=== PATIENT | female | born 1975 | race Caucasian/White ===

== ENCOUNTER 2019-08-05 19:50 | Emergency (ER) | payer MEDICAID, SELFPAY ==
[2019-08-05 19:51] VITALS: BP 164/97; PULSE 98; RESP 15; TEMP 36.7; O2SAT 95; BMI 55.0
--- NOTE | 2019-08-05 20:34 | ED.DCSUM_ITS ---
History of Present Illness Chief Complaint: Other, Pain/Inj Informant: Patient Onset: Yesterday Context: Gradual Onset Timing: Continuous Current Severity: Moderate Maximum Severity: Moderate Narrative: Patient is a 43-year-old female presented with facial swelling. Patient states she had a cyst removed from her head by Dr. Medina at [facility] on Tuesday, 2 days ago. Since then she has had slowly progressing swelling of her forehead, eyes and face. She was started on Keflex and has been taking it. Patient states she is tolerated in the past. She was discharged home and instructed to take Tylenol and Motrin as needed for her pain. She states she is also had significant pain at her surgical site. Patient was seen at [facility] twice for pain associated with it. The first time she was started on Toradol after getting an IM shot of morphine. The second time patient was just discharged home. Patient is more concerned about the swelling right now but states she is having a lot of pain. She denies any new foods. She has any swelling in her throat. She denies any difficulty breathing or shortness of breath. She denies any other complaints at this time. Past Medical History - Allergies and Home Meds Allergies/Adverse Reactions: Allergies lisinopril Allergy (Verified 08/05/19 19:56) Shortness of breath losartan Allergy (Verified 08/05/19 19:56) Shortness of breath Primary Care Physician: Wu Sanchez DO [Primary Care Provider] - Smoking Status: Never smoker Review of Systems All systems negative except as indicated ENT: Reports: - - Facial swelling Skin: Reports: - - Surgical site on scalp Physical Exam Vital Signs/Narrative: Vital Signs Temp Pulse Resp BP Pulse Ox 08/05/19 19:51 98.1 F 98 15 164/97 H 95 Inital Vital Signs reviewed: Yes General: Well nourished, Well developed, Obese, No Acute Distress Head: Normocephalic Eyes: Perrl, EOMI, - - Bilateral edema of the eyelids, right greater than left and mild periorbital edema ENT: Moist mucous membranes, No rhinorrhea, - - Mild edema of the right cheek and compared to the left, no edema of the buccal surfaces or the oropharynx Neck: Supple, Nontender, - - No stridor. Negative for: No JVD Cardiovascular: Regular rate, Regular rhythm, No murmurs Respiratory: No distress, CTA bilaterally, Chest nontender. Negative for: Wheezing Abdomen: Soft, Nontender, Nondistended, Normal bowel sounds Back: Nontender, Normal Inspection Extremities: Nontender, No edema Skin: Normal color, No rash, - - Surgical site over left upper scalp extending from the hairline back about 5 cm, mild tenderness to palpation but no significant erythema or warmth and no drainage Neurological: Alert, Oriented x3, Cranial nerves II-XII grossly intact, Normal Strength, Normal Sensation Psychological: Normal affect, Normal Mood Diagnostic/Tx/Re-eval - Medical Decision Making Patient is evaluated for swelling of her face. She had a large lipoma removed from her scalp on Tuesday, 2 days ago. She does not have any signs of airway swelling or other signs of an allergic reaction. She is given 1 dose of prednisone. Discussed the case with Dr. Medina, who surgeon who suspect this is dependent edema from the surgery. He states that the lipoma was quite extensive. He is comfortable stopping the patient's antibiotics just in case. He does not think she requires longer course of steroids however. I agree with this. He is agreeable with me writing a short course of Brook for her surgical pain. Patient is counseled heavily that she needs to follow-up with Dr. Medina and to call tomorrow to arrange follow-up. She verbalizes agreement understand with this. She does request a dose of Diflucan stating that she started having symptoms of a yeast infection when she started the Keflex. This is given to her in the emergency room. An [facility] report is checked which confirms that patient has not had any recent opioid prescriptions. Patient is counseled on signs and symptoms requiring return to the emergency room. Patient verbalizes agreement and understand this plan. Patient discharged home in stable and improved condition. ED Disposition - Plan for ED Patient: Disposition: Home or Assisted Living Diagnosis: Dependent edema, Postoperative pain Prescriptions: Hydrocodone Bitart/Apap 5-325 [Brook 5MG-325MG] 1 tab PO Q6H PRN PRN 3 Days #6 tab PRN Reason: Pain Prescription Printed Referrals: Wu Sanchez DO [Primary Care Provider] - Additional Instructions: Follow-up with Dr. Medina. Call the office tomorrow to schedule appointment. Continue to alternate Tylenol and Motrin for pain. He may take the Brook prescribed today for severe pain. Stop taking the antibiotics. You are given 1 dose of steroids today. More than likely this is not an allergic reaction but swelling from your recent surgery. Return to the emergency room if you develop any worsening symptoms or difficulty breathing. You were given a one-time dose of fluconazole for yeast infection in the emergency room as well.
[2019-08-05] MEDS: FLUCONAZOLE 150 MG TABLET PO (21:41)
[2019-08-05] MEDS: predniSONE 20 MG Tablet 60 MG PO (21:48)
[2019-08-05 21:49] VITALS: BP 145/71; PULSE 85; RESP 17; O2SAT 98
--- OUTSIDE RECORDS SUMMARY | 2019-08-08 04:06 | XMS RPT_ITS | CCD ---
:1975 External Reference #:[id number] Demographics Preferred Language Unknown Marital Status Unknown Quaker Affiliation Unknown Race Unknown Ethnic Group Unknown Author Organization [facility] Care Team Providers Name Role Phone PULLUM, (GINNER HELPER) Unavailable Unavailable Taylor, E. Unavailable Unavailable TRISTEN EDWARDS Admitting Unavailable TRISTEN EDWARDS Attending Unavailable TRISTEN EDWARDS Primary Care Unavailable MD RIYA Consulting Unavailable PROVIDER Consulting Unavailable PROVIDER Consulting Unavailable TRISTEN EDWARDS Admitting Unavailable TRISTEN EDWARDS Attending Unavailable TRISTEN EDWARDS Primary Care Unavailable MD RIYA Consulting Unavailable PROVIDER Consulting Unavailable PROVIDER Consulting Unavailable BLAINE Admitting Unavailable BLAINE Attending Unavailable BLAINE Primary Care Unavailable TRISTEN EDWARDS Consulting Unavailable PROVIDER Consulting Unavailable PROVIDER Consulting Unavailable FAUST, C Admitting Unavailable FAUST, C Attending Unavailable FAUST, C Primary Care Unavailable TRISTEN EDWARDS Consulting Unavailable PROVIDER Consulting Unavailable PROVIDER Consulting Unavailable LEX, E Admitting Unavailable LEX, E Attending Unavailable TRISTEN EDWARDS Referring Unavailable LEX, E Primary Care Unavailable TRISTEN EDWARDS Consulting Unavailable PROVIDER Consulting Unavailable PROVIDER Consulting Unavailable LORENZ Admitting Unavailable LORENZ Attending Unavailable LORENZ Primary Care Unavailable TRISTEN EDWARDS Consulting Unavailable PROVIDER Consulting Unavailable PROVIDER Consulting Unavailable LORENZ Admitting Unavailable LORENZ Attending Unavailable LORENZ Primary Care Unavailable TRISTEN EDWARDS Consulting Unavailable PROVIDER Consulting Unavailable PROVIDER Consulting Unavailable DIDUR, DO Admitting Unavailable DIDUR, DO Attending Unavailable TRISTEN EDWARDS Referring Unavailable DIDUR, DO Primary Care Unavailable TRISTEN EDWARDS Consulting Unavailable PROVIDER Consulting Unavailable PROVIDER Consulting Unavailable HABERBERGER, M Admitting Unavailable HABERBERGER, M Attending Unavailable TRISTEN EDWARDS Referring Unavailable HABERBERGER, M Primary Care Unavailable TRISTEN EDWARDS Consulting Unavailable PROVIDER Consulting Unavailable PROVIDER Consulting Unavailable Allergies Reported Allergen Reaction(s) Severity Date of Onset Location Lisinopril Moderate (Severity [facility]) [facility] Repository Losartan Moderate (Severity [facility]) ([facility] Repository Problems Active Problems Category Problem Name Status Date Location Asthma Unspecified asthma, Active 06-25-2019 - Dale [facility] sarah (74450) Attention-deficit Attention-deficit Active 06-25-2019 - [place] conduct and disruptive hyperactivity disorder, [facility] behavior disorders unspecified type (0000 0) Calculus of urinary Personal history of Active 06-25-2019 - J oel Pomerekasey tract urinary calculi [facility] (18566) Essential hypertension Essential (primary) Active 06-25-2019 - Dale [place] hypertension [facility] (69304) Fluid and electrolyte Hypokalemia Active 06-25-2019 - Dale P omerene disorders [facility] (65530) Other nervous system Paresthesia of skin Active 06-25-2019 - Dale Pomerene disorders [facility] (87617) Other skin disorders Follicular cyst of the Active 07-29-2019 - [place] skin and subcutaneous [facility] tissue, unspecified (92277) Residual codes; 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 - [place] unclassified cervix and uterus [facility] (96377) Residual codes; Acquired absence of Active 06-25-2019 - [facility] unclassified other specified parts of [facility] digestive tract (27258) Substance-related Nicotine dependence, Active 06-25-2019 - Sandee [place] disorders cigarettes, [facility] uncomplicated (74834) Unclassified Unknown / UNK(Unknown) Active 10-13-2017 - [facility] [place] (16723) Past or Other Problems Category Problem Name Status Date Location Other screening for Encounter for Completed 11-10-2018 - Dale huynh suspected conditions screening for [facility] (not mental disorders malignant neoplasm (51497) or infectious disease) of cervix Unclassified LEFT URETERAL STONE 10-13-2017 - [facility] [place] (26636) Results Result Name Value Range Unit Interpretation Flag Date Location operative procedures on 2019-08-06 OPERATIVE PROCEDURES [facility] OPERATIVE REPORT (00 000) NAME ACCOUNT SEX AGE ADMIT DISCHARGE PT MED. RECORD# NUMBER DATE DATE TYPE SUSI [id number] F 43 08/03/19 08/03/19 2 KYLAH Villegas [id number] ROOM: [facility] DATE OF : 1975 DICTATING PHYSICIAN: Mirella Lorenz DATE OF SURGERY: July 29, 2019 SURGEON: Mirella Lorenz MD [employer] SUPERVISOR: BEHZAD Liu ANESTHESIOLOGIST: June Yoder CRNA ANESTHETIC: Local anesthesia 22 mL of 0.25% Sensorcaine with epinephrine. PREOPERATIVE DIAGNOSIS: POSTOPERATIVE DIAGNOSIS: Left frontal scalp lesion. OPERATION PERFORMED: Excision of left frontal scalp lesion. ESTIMATED BLOOD LOSS: Less than 5 mL. COMPLICATIONS: FLUIDS: 700 mL of crystalloid. SPECIMEN: Left frontal scalp lesion to pathology. DISPOSITION: Stable to recovery. INDICATIONS: Kylah christine is a 43-year-old lady with a left frontal scalp lesion which was enlarging. She was concerned regarding possible ma lignancy. DESCRIPTION OF OPERATION: After informed consent and demarca tion, she was brought to the operating gillian m and placed on the table in supine position with adequate padding at pressure points a nd her head slightly elevated. The patient was given light intravenous sedation, preppe d and draped in the usual sterile fashion, and time out verification was done. The l esion was again palpated and again demarcated, and then locally anesthetized with ap proximately 22 mL of 0.25% Sensorcaine with epinephrine. Page 1 of 2 KYLAH TUTTLE Operative Report KYLAH TUTTLE : 1975 An incision was made directl y over this lesion, deepened to the underlying tissue and the wound edges retracted and oozing points cauterized. Th ere was an almost sack-like structure with agustin y thin, membranous edges and it appeared to be a flattened, somewhat oblong, fatty, rubb gardenia tissue. This was carefully dissected free in its entirety and oozing points coagulated . The wound was irrigated with antibiotic solution and checked for good hemostasis. Then the skin edges were bro ught closer with inverted interrupted 3-0 PDS through subcutaneous and subcuticula r layers, and interrupted 3-0 Prolene placed in interrupted fashion. There was excellent closer and excellent hemostas is. Mupirocin was applied. The patient was reilly kened and sent to the recovery room in good condition. The case was discussed with the patient and jenise mcclelland when she was more awake in recovery. Dictated By: Mirella Lorenz MD 08/03/19 10:36 JOB #: [id number] Transcribed By: barbara 08/03/19 20:39 Electronically signed by: E-Sign Dr. Mirella Lorenz MD 08/05/19 23:21 Page 2 of 2 KYLAH TUTTLE Operative Report cbc + diff on 08-04 Basophils (Bld) 0.10 0.00 - 0.10 x10EE3/UL Normal 08-04-2019 Олег [facility] [#/Vol] [facility] (94277) Comment: Performed By: #### [id number] ## ## [facility],[address] [place] [address] 12640 Basophils/100 WBC (Bld) 0.6 0.0 - 2.0 % Normal 2018 [facility] ( 78989) Comment: Performed By: #### [id number] ## ## [facility],[address] [place] [address] 33318 CBC + DIFF Normal 08-04-2019 [facility] (60492) Comment: Result Comment: CBC-COMPLETE BLOOD COUNT Performed By: #### [id number] ## ## [facility],[address] [place] [address] 06288 Eosinophils (Bld) 0.40 0.00 - 0.50 x10EE3/UL Normal 08-04-2019 [facility] [#/Vol] [facility] (36778) Comment: Performed By: #### [id number] ## ## [facility],[address] [place] [address] 23846 Eosinophils/100 WBC (Bld) 3.9 0.0 - 7.0 % Normal 07-11 [facility] ( 77841) Comment: Performed By: #### [id number] ## ## [facility],[address] [place] [address] 42573 Erythrocyte distribution 15.1 12.0 - 15.6 % Normal [facility] (RBC) [Ratio] Hospital (89966) Comment: Performed By: #### [id number] ## ## [facility],[address] [place] [address] 39784 Hematocrit (Bld) [Volume 44.6 34.0 - 46.0 % Normal [facility] ( 10006) Comment: Performed By: #### [id number] ## ## [facility],[address] [place] [address] 38803 Hemoglobin (Bld) 14.6 12.0 - 16.0 g/dl Normal 08-04-2019 [facility] [Mass/Vol] [facility] (02614) Comment: Performed By: #### [id number] ## ## [facility],[address] [place] [address] 88336 Lymphocytes (Bld) 2.70 0.80 - 2.80 x10EE3/UL Normal 08-04-2019 [facility] [#/Vol] [facility] (09171) Comment: Performed By: #### [id number] ## ## [facility],[address] [place] [address] 40837 Lymphocytes/100 WBC (Bld) 25.9 20.0 - 45.0 % Normal [facility] ( 31785) Comment: Performed By: #### [id number] ## ## [facility],[address] [place] [address] 97035 MANUAL DIFF N/A Normal 08-04-2019 [facility] (63313) Comment: Performed By: #### [id number] ## ## [facility],[address] [place] [address] 05916 MCH (RBC) [Entitic mass] 30 27 - 33 pg Normal 08-04 [facility] ( 36611) Comment: Performed By: #### [id number] ## ## [facility],[address] [place] [address] 34531 MCHC (RBC) [Mass/Vol] 33 32 - 36 X10 3 Normal 08-04-20 19 [facility] ( 38247) Comment: Performed By: #### [id number] ## ## [facility],[address] [place] [address] 48405 MCV (RBC) [Entitic vol] 92 80 - 99 fl Normal 2018 [facility] ( 98843) Comment: Performed By: #### [id number] ## ## [facility],[address] [place] [address] 63466 Monocytes (Bld) 0.50 0.20 - 1.00 x10EE3/UL Normal 08-04-2019 Олег [facility]on[facility] [place] [#/Vol] [facility] (72659) Comment: Performed By: #### [id number] ## ## [facility],[address] [place] [address] 32849 MONOS % 5.2 0.0 - 10.0 % Normal 08-04-2019 [facility] (23874) Comment: Performed By: #### [id number] ## ## [facility],[address] [place] [address] 56309 Morphology Darian (Bld) [Interp] N/A Normal 08-04-2019 [facility] ( 81727) Comment: Performed By: #### [id number] ## ## [facility],[address] [place] [address] 80037 Neutrophils (Bld) 6.60 1.50 - 7.10 x10EE3/UL Normal 08-04-2019 [facility] [#/Vol] [facility] (57516) Comment: Performed By: #### [id number] ## ## [facility],[address] [place] [address] 84946 Neutrophils/100 WBC (Bld) 64.4 46.0 - 76.0 % Normal [facility] ( 75126) Comment: Performed By: #### [id number] ## ## [facility],[address] [place] [address] 21306 Platelet mean volume 9.2 6.6 - 10.5 fl Normal 08-04-20 [facility] (Bld) [Entitic vol] Hospital (22482) Comment: Result Comment: AUTOMATED DI FFERENTIAL Performed By: #### [id number] ## ## [facility],[address] [place] [address] 91232 Platelets (Bld) 268 150 - 450 x10EE3/UL Normal 08-04-2019 [facility] [#/Vol] [facility] (92636) Comment: Performed By: #### [id number] ## ## [facility],[address] [place] [address] 24634 RBC (Bld) [#/Vol] 4.84 4.10 - 5.30 x 10EE6/UL Normal 9 [facility] (70483) Comment: Performed By: #### [id number] ## ## [facility],[address] [place] [address] 84002 WBC (Bld) [#/Vol] 10.3 4.5 - 10.8 x 10EE3/UL Normal 08-04-2019 [facility] ( 67307) Comment: Performed By: #### [id number] ## ## [facility],[address] [place] [address] 78073 bmp with egfr on 28-07-26 Age - Reported 43 years Normal 08-04-2019 [facility] (38387) Comment: Performed By: #### [id number] ## ## [facility],[address] [place] [address] 78826 Anion gap [Moles/Vol] 12 10 - 20 mmol/L Normal 08-04-20 [facility] ( 78948) Comment: Performed By: #### [id number] ## ## [facility],[address] [place] [address] 95973 Calcium [Mass/Vol] 9.6 8.6 - 10.2 mg/dl Normal 08-04-2019 [facility] ( 15298) Comment: Performed By: #### [id number] ## ## [facility],[address] [place] [address] 20618 Chloride [Moles/Vol] 103 98 - 107 mmol/L Normal 9 [facility] ( 54286) Comment: Performed By: #### [id number] ## ## [facility],[address] [place] [address] 65459 CO2 [Moles/Vol] 26.5 21.0 - 31.0 mmol/L Normal 08-04-2019 [facility] ( 05597) Comment: Performed By: #### [id number] ## ## [facility],[address] [place] [address] 00196 Creatinine [Mass/Vol] 0.9 0.6 - 1.2 mg/dl Normal 08-04-20 19 [facility] ( 99486) Comment: Performed By: #### [id number] ## ## [facility],[address] [place] [address] 32914 GFR/1.73 sq M >60 60 - 999 mL/min/{1.73_m2} Normal 9 [facility] predicted among [facility] non-blacks MDRD (000 00) (S/P/Bld) [Vol rate/Area] Comment: Result Comment: ACCORDING TO THE NATIONAL KIDNEY DISEASE EDUCATION PROGRAM(NKDE), A NORMAL eGFR IS A VALUE GREATER THAN OR E QUAL TO 60 ML/MIN/1.73 SQ METERS. CHRONIC KIDNEY DISEASE: <60m L/MIN/1.73 SQ METERS KIDNEY FAILURE: <15mL/MIN/1. 73 SQ METERS THIS TEST SHOULD ONLY BE USE D FOR PATIENTS 18 YEARS OF AGE AND OLDER. Performed By: #### [id number] ## ## [facility],[address] [place] [address] 83370 GFR/1.73 sq M predicted among Normal 08-04-2019 [facility] non-blacks MDRD (S/P/Bld) [Vol Hospital (24955) rate/Area] Comment: Result Comment: BASIC METABO LIC PANEL Performed By: #### [id number] ## ## [facility],[address] [place] [address] 38850 Glucose [Mass/Vol] 108 74 - 106 mg/dl High 08-04-2019 [facility] (74456) Comment: Performed By: #### [id number] ## ## [facility],[address] [place] [address] 67808 Potassium [Moles/Vol] 4.0 3.5 - 5.1 mmol/L Normal 08-04-20 [facility] ( 12841) Comment: Performed By: #### [id number] ## ## [facility],[address] [place] [address] 05588 Sodium [Moles/Vol] 137 136 - 145 mmol/l Normal 08-04-2019 [facility] ( 14896) Comment: Performed By: #### [id number] ## ## [facility],[address] [place] [address] 69931 Urea nitrogen [Mass/Vol] 13 6 - 20 mg/dl Normal 08-04 [facility] ( 66805) Comment: Performed By: #### [id number] ## ## [facility],[address] [place] [address] 43217 emergency report on 2019-07-14 EMERGENCY REPORT [facility] Normal 07-14 [facility] ospital EMERGENCY ROOM REPORT (53527) NAME ACCOUNT SEX AGE ADMIT DISCHARGE PT MED. RECORD# NUMBER DATE DATE TYPE KYLAH TUTTLE [id number] F 43 06/25/19 06/25/19 3 A [id number] ROOM: ER DATE OF : 1975 DICTATING PHYSICIAN: Reid Burnett HISTORY OF PRESENT ILLNESS: The patient came in complaining of tingling all over in her legs and arms. She white s had this for 2 weeks. She cannot tolerate it. She could not get in to see her PCP. S he presents to the emergency department. She says that she always has had tingling in the lower extremities and now in her upper extremities. She does not have chest pain or shortness of breath. She does have a headache. She presents to the emergency department. PAST MEDICAL HISTORY: She sa ys that she has a history of depression and bipolar disorder, kidney stones, ADHD, cholecystectomy, hysterectomy . SOCIAL HISTORY: She does smoke. She rarely drinks alcohol. REVIEW OF SYSTEMS: Ten systems reviewed and negative except as mentioned above. PHYSICAL EXAMINATION: She is afebrile, blood pressure 140/88 , pulse 98, respirations 18, pulse ox 98 % on room air. Head is normocephalic, atraumatic. Eyes: Pupils are equal, round, and reactive to light. Extraocular muscles are intact. Nares are patent. Throat has adequ ate oral moisture. Uvula is midline. Neck is supple without petechiae or rash. H eart rate is regular without murmur. S1 equals S2, and no S3 or S4 appreciated. Lungs are clear to auscultation bilaterally. No rales, rhonchi or retractions. Abdomen is soft and nontender, nondistended. Skin is warm and dry. Deep tendon reflexes are intact. No focal deficits. DIAGNOSTIC DATA: EKG shows a rate of 109, left axis deviation, sinus tachycardia, incomplete right bundle bran ch block. This was compared to a previous EKG. There were similar changes on June 28, 2017. WBC is normal. H&H is 15 and 44. Platelets 305,000. Chemistries are unremarkable for potassium of 3.2, BUN 11, creatinine 0.9. DIAGNOSIS: Generalized tingling, cause not clear. PLAN/DISPOSITION: She will b e discharged home. We will place her on potassium. I told her to return for any p roblems. With the complexity, it may be more beneficial to follow up with Dr. Ahuja or Dr. Thompson of Internal Medici ne. Page 1 of 2 KYLAH TUTTLE A Emergency Room Report Dictated By: Reid Burnett DO 06/25/19 17:58 JOB #: [id number] Transcribed By: magdaleno 06/26/19 17:38 Electronically signed by: TAURUS Burnett D.O. 07/14/19 11:36 Page 2 of 2 KYLAH TUTTLE A Emergency Room Report cmp with egfr on 28-06-16 Age - Reported 43 years Normal 06-25-2019 [facility] (85288) Comment: Performed By: #### [id number] ## ## [facility] sarah,[address] [facility] 47261 Albumin [Mass/Vol] 4.3 3.4 - 4.8 g/dL Normal 06-25-2019 [facility] ( 14642) Comment: Performed By: #### [id number] ## ## [facility],[address] [facility] 33675 Albumin/Globulin [Mass 1.3 0.9 - 1.6 {ratio} Normal 019 [facility]] [facility] (99384) Comment: Performed By: #### [id number] ## ## [facility],[address] [facility] 23499 ALK PHOS 57 38 - 126 U/L Normal 06-25-2019 [facility] (05942) Comment: Performed By: #### [id number] ## ## [facility],[address] [facility] 03876 ALT/SGPT 17 8 - 35 U/L Normal 06-25-2019 [facility] (24497) Comment: Performed By: #### [id number] ## ## [facility],[address] [facility] 93992 Anion gap [Moles/Vol] 13 10 - 20 mmol/L Normal 06-25-20 19 [facility] ( 58425) Comment: Performed By: #### [id number] ## ## [facility],[address] [place] [address] AST/SGOT 15 13 - 39 U/L Normal 06-25-2019 [facility] (27855) Comment: Performed By: #### [id number] ## ## [facility],[address] [facility] 37467 B/C RATIO 12 0 - 30 ratio Normal 06-25-2019 [facility] (20086) Comment: Performed By: #### [id number] ## ## [facility],[address] [place] [address] [place] [address] Bilirubin [Mass/Vol] 0.4 0.0 - 1.5 mg/dl Normal 9 [facility] ( 01249) Comment: Performed By: #### [id number] ## ## [facility],[address] [place] [address] [place] [address] Calcium [Mass/Vol] 9.9 8.6 - 10.2 mg/dl Normal 06-25-2019 [facility] ( 27383) Comment: Performed By: #### [id number] ## ## [facility],[address] [place] [address] [place] [address] Chloride [Moles/Vol] 101 98 - 107 mmol/L Normal 9 [facility] ( 59213) Comment: Performed By: #### [id number] ## ## [facility],[address] [place] [address] [place] [address] CO2 [Moles/Vol] 26.1 21.0 - 31.0 mmol/L Normal 06-25-2019 [facility] ( 78124) Comment: Performed By: #### [id number] ## ## [facility],[address] [place] [address] [place] [address] Creatinine [Mass/Vol] 0.9 0.6 - 1.2 mg/dl Normal 06-25-20 19 [facility] ( 93109) Comment: Performed By: #### [id number] ## ## [facility],[address] [place] [address] [place] [address] GFR/1.73 sq M predicted among Normal 06-25-2019 [facility] non-blacks MDRD (S/P/Bld) [Vol Hospital (04382) rate/Area] Comment: Result Comment: COMPREHENSIV E METABOLIC PANEL Performed By: #### [id number] ## ## [facility],[address] [place] [address] 82493 GFR/1.73 sq M >60 60 - 999 mL/min/{1.73_m2} Normal 9 [facility] among [facility] non-blacks MDRD (000 00) (S/P/Bld) [Vol rate/Area] Comment: Performed By: #### [id number] ## ## [facility],[address] [place] [address] 70927 Result Comment: ACCORDING TO THE NATIONAL KIDNEY DISEASE EDUCATION PROGRAM(NKDE), A NORMAL eGFR IS A VALUE GREATER THAN OR E QUAL TO 60 ML/MIN/1.73 SQ METERS. CHRONIC KIDNEY DISEASE: <60m L/MIN/1.73 SQ METERS KIDNEY FAILURE: <15mL/MIN/1. 73 SQ METERS THIS TEST SHOULD ONLY BE USE D FOR PATIENTS 18 YEARS OF AGE AND OLDER. Globulin (S) [Mass/Vol] 3.2 1.5 - 3.8 G/DL Normal 2018 [facility] ( 24670) Comment: Performed By: #### [id number] ## ## [address] [address] Glucose [Mass/Vol] 173 74 - 106 mg/dl High 06-25-2019 [facility] (86552) Comment: Performed By: #### [id number] ## ## [facility],[address] [place] [address] 18433 Potassium [Moles/Vol] 3.2 3.5 - 5.1 mmol/L Low 06-25-20 19 [facility] ( 59301) Comment: Performed By: #### [id number] ## ## [address] [address] Protein [Mass/Vol] 7.5 6.4 - 8.3 g/dl Normal 06-25-2019 [facility] ( 65970) Comment: Performed By: #### [id number] ## ## [facility],[address] [place] [address] 06402 Sodium [Moles/Vol] 137 136 - 145 mmol/l Normal 06-25-2019 [facility] ( 52737) Comment: Performed By: #### [id number] ## ## [facility] sarah,[address] [place] [address] 79754 Urea nitrogen [Mass/Vol] 11 6 - 20 mg/dl Normal 06-25 [facility] ( 68512) Comment: Performed By: #### [id number] ## ## [facility],[address] [place] [address] 68051 chest 2 views on 28-06-16 CHEST 2 VIEWS [facility] Normal 06-25-20 [facility] ospital [address] [place] [address] 15567 ([id number]) Patient: KYLAH TUTTLE Phone#: : 1975 Age: 43 Gender: F Pt. Type: ER Account: [id number] Location: [facility] Ordering: REID BURNETT Exam Date: 06/25/2019/15:06 Family Phys: JANNIE EDWARDS Charge Code: [id number] Physician: Traill Order #: [id number] DLP Dose#: PROCEDURE: X-RAY CHEST 2 VIEWS COMPARISON: [facility], XR, CHEST AP, 06/28/2017, 11:4 4. INDICATIONS: Tingling and numbness in both arms. FINDINGS: LUNGS: Mild chronic intersti tial changes are present.. No significant pulmonary parenchymal abnormalities. VASCULATURE: Normal. Unremarkable pulmonary vasculature. CARDIAC: Normal. No cardiac silhouette abnormality or cardio megaly. MEDIASTINUM: Normal. No visible mass or adenopathy. PLEURA: Normal. No effusion or pleural thickening. BONES: Normal. No fracture or visible bony lesion. OTHER: Negative. CONCLUSION: No acute disease. No significant change has occu rred. Dictated by: Sandie Nevarez MD on 06/25/2019 at 15:28 Approved by: Sandie Nevarez MD on 06/25/2019 at 15:28 cbc + diff on 06-25 Basophils (Bld) 0.10 0.00 - 0.10 x10EE3/UL Normal 06-25-2019 Олег [facility] [#/Vol] [facility] (31435) Comment: Performed By: #### [id number] ## ## [facility],[address] [place] [address] 71866 Basophils/100 WBC (Bld) 1.2 0.0 - 2.0 % Normal 2018 [facility] ( 87123) Comment: Performed By: #### [id number] ## ## [facility],[address] [place] [address] 98518 CBC + DIFF Normal 06-25-2019 [facility] (92953) Comment: Result Comment: CBC-COMPLETE BLOOD COUNT Performed By: #### [id number] ## ## [facility],[address] [place] [address] 05472 Eosinophils (Bld) 0.10 0.00 - 0.50 x10EE3/UL Normal 06-25-2019 [facility] [#/Vol] [facility] (30758) Comment: Performed By: #### [id number] ## ## [facility],[address] [place] [address] 55513 Eosinophils/100 WBC (Bld) 1.2 0.0 - 7.0 % Normal 06-10 [facility] ( 51136) Comment: Performed By: #### [id number] ## ## [facility],[address] [place] [address] 42192 Erythrocyte distribution 14.5 12.0 - 15.6 % Normal [facility] (RBC) [Ratio] [facility] (61988) Comment: Performed By: #### [id number] ## ## [facility],[address] [place] [address] 91100 Hematocrit (Bld) [Volume 44.8 34.0 - 46.0 % Normal [facility] ( 77784) Comment: Performed By: #### [id number] ## ## [facility],[address] [place] [address] 30142 Hemoglobin (Bld) 15.5 12.0 - 16.0 g/dl Normal 06-25-2019 [facility] [Mass/Vol] [facility] (01812) Comment: Performed By: #### [id number] ## ## [facility],[address] [place] [address] 75377 Lymphocytes (Bld) 2.40 0.80 - 2.80 x10EE3/UL Normal 06-25-2019 [facility] [#/Vol] [facility] (57253) Comment: Performed By: #### [id number] ## ## [facility],[address] [place] [address] 61665 Lymphocytes/100 WBC (Bld) 28.6 20.0 - 45.0 % Normal [facility] ( 04448) Comment: Performed By: #### [id number] ## ## [facility],[address] [place] [address] 69916 MANUAL DIFF N/A Normal 06-25-2019 [facility] (99652) Comment: Performed By: #### [id number] ## ## [facility],[address] [place] [address] 90663 MCH (RBC) [Entitic mass] 31 27 - 33 pg Normal 06-25 [facility] ( 63554) Comment: Performed By: #### [id number] ## ## [facility],[address] [place] [address] 83898 MCHC (RBC) [Mass/Vol] 35 32 - 36 X10 3 Normal 06-25-20 19 [facility] ( 92689) Comment: Performed By: #### [id number] ## ## [facility],[address] [place] [address] 12931 MCV (RBC) [Entitic vol] 91 80 - 99 fl Normal 2018 [facility] ( 20115) Comment: Performed By: #### [id number] ## ## [facility],[address] [place] [address] 25561 Monocytes (Bld) 0.30 0.20 - 1.00 x10EE3/UL Normal 06-25-2019 Олег [facility] [place] [#/Vol] [facility] (52207) Comment: Performed By: #### [id number] ## ## [facility],[address] [place] [address] 70139 MONOS % 3.2 0.0 - 10.0 % Normal 06-25-2019 [facility] (87564) Comment: Performed By: #### [id number] ## ## [facility],[address] [place] [address] 16182 Morphology Darian (Bld) [Interp] N/A Normal 06-25-2019 [facility] ( 68006) Comment: Performed By: #### [id number] ## ## [facility],[address] [place] [address] 89232 Neutrophils (Bld) 5.50 1.50 - 7.10 x10EE3/UL Normal 06-25-2019 [facility] [#/Vol] [facility] (30040) Comment: Performed By: #### [id number] ## ## [facility],[address] [place] [address] 07156 Neutrophils/100 WBC (Bld) 65.8 46.0 - 76.0 % Normal [facility] ( 35674) Comment: Performed By: #### [id number] ## ## [facility],[address] [place] [address] 69046 Platelet mean volume 8.9 6.6 - 10.5 fl Normal 06-25-20 19 [facility] (Bld) [Entitic vol] [facility] (80170) Comment: Result Comment: AUTOMATED DI FFERENTIAL Performed By: #### [id number] ## ## [facility],[address] [place] [address] 48669 Platelets (Bld) 305 150 - 450 x10EE3/UL Normal 06-25-2019 [facility] [#/Vol] [facility] (77192) Comment: Performed By: #### [id number] ## ## [facility],[address] [place] [address] 42351 RBC (Bld) [#/Vol] 4.93 4.10 - 5.30 x 10EE6/UL Normal 9 [facility] (86173) Comment: Performed By: #### [id number] ## ## [facility],[address] [place] [address] 84268 WBC (Bld) [#/Vol] 8.4 4.5 - 10.8 x 10EE3/UL Normal 06-25-2019 [facility] ( 97043) Comment: Performed By: #### [id number] ## ## [facility],[address] [place] [address] 47551 emergency report on 2019-05-10 EMERGENCY REPORT [facility] Normal 05-10 [facility] EMERGENCY ROOM REPORT ([id number]) NAME ACCOUNT SEX AGE ADMIT DISCHARGE PT MED. RECORD# NUMBER DATE DATE TYPE KYLAH TUTTLE [id number] F 43 05/09/19 05/09/19 3 A [id number] ROOM: ER DATE OF : 1975 DICTATING PHYSICIAN: Qamar Faust CHIEF COMPLAINT: I have a sty. HISTORY OF PRESENT ILLNESS: Patient states yeste rday she started getting some redness and swelling to the left lower lid. It is more swollen and somewhat painful today. No significant purulent drainage. Her vision is good. PAST MEDICAL HISTORY: Significant for ADHD. MEDICATIONS: Per medication reconciliation list. ALLERGIES: No allergies. PHYSICAL EXAMINATION: This i s a 43-year-old female who is alert and appropriate. Patient does not appear toxi c. Vital signs essentially normal as noted on the chart. She does have some redness and edema to the left lower eyelid with a focus of induration medially right al alton the lid margin. No other involvement to the eye and the right eye appears normal. Conjunctiva is normal. No pu rulent drainage. Nose, mouth and throat are normal. EMERGENCY DEPARTMENT COURSE AND TREATMENT: She was given a prescription for erythromyci n ophthalmic ointment. Warm compresses recommended. DIAGNOSIS: Left lower eyelid hordeolum. PLAN/DISPOSITION: She is to follow up with her family physician or [facility] in 2-3 days if no better, returning if symptoms worsen. Dictated By: Qamar Faust MD 05/09/19 12:08 JOB #: [id number] Transcribed By: barbara 05/09/19 21:01 Electronically signed by: TAURUS Faust M.D. 05/10/19 16:44 Page 1 of 2 [facility] Emergency Room Report Page 2 of 2 [facility] Emergency Room Report nicotine and metabolite, urine on 2019-04-06 3-OH COTININE, UR 104 () ng/mL Normal 04-06-2019 [facility] (51469) Comment: Result Comment: Nicotine is metabolized to cotinine, and 5-CH-cbhpuhig is a metabolite of cotinine. Afte r cessation from long-term or heavy use of nicotine produc ts, 8-WH-rdssnidc may persist for weeks. Performed By: #### NICOTINEU R ####[facility] [address] [place], [place] [phone] ANABASINE, UR < 3 () Normal 04-06-2019 [place] (55187) Comment: Performed By: #### NICOTINEU R ####[facility] [address] [place], [place] [phone] COTININE, UR 41 () ng/mL Normal 04-06-2019 [facility] (06105) Comment: Result Comment: Cotinine is the major metabolite of nicotine and has a half-life of approximately 1 6 hours. Performed By: #### NICOTINEU R ####[facility] [address] [place], [place] [phone] NICOTINE, UR 11 () ng/mL Normal 04-06-2019 [facility] (93511) Comment: Result Comment: Consistent w ith use of a nicotine-containing product within 1 week of specimen collectio n. INTERPRETIVE INFORMATION: Ni cotine and Metabolites, Urine, Quantitative Methodology: Quantitative Li quid Chromatography-Tandem Mass Spectrometry Positive cutoff: Nicotine 2 ng/mL Cotinine 5 ng/mL 2-PV-Igxzpaog 50 ng/mL Nornicotine 2 ng/mL Anabasine 3 ng/mL For medical purposes only; n ot valid for forensic use. This test is designed to emilie luate recent use of nicotine-containing products . Passive and active exposure cannot be discriminated defi nitively, although a cutoff of 100 ng/mL cotinine is freque ntly used for surgery qualification purposes. For smoking cessation programs or compliance testing, the abse nce of expected drug(s) and/or drug metabolite(s) may indic ate non-compliance, inappropriate timing of spec imen collection relative to drug administration, poor dr ug absorption, diluted/adulterated urine, o r limitations of testing. The concentration value must be greater than or equal to the cutoff to be reported as pos itive. Anabasine is included as a biomarker of tobacco use, versus nicotine replacement. Interpretive questions shoul d be directed to the laboratory. Test developed and character istics determined by [facility]. See Compliance Statement B: [facility]/ Performed by [email or web address] , [address] [place], [place] [address] [email or web address], Abdi Miramontes do, MD, Lab. Director Performed By: #### NICOTINEU R ####[facility] [place], [place] [phone] NORNICOTINE, UR < 2 () Normal 04-06-2019 [facility] (68079) Comment: Performed By: #### NICOTINEU R ####[facility] [place], [place] [phone] urine culture on 28-03-25 Bacteria Normal 04-03-2019 [facility] identified RUN DATE: 04/05/19 Laboratory LIVE PAGE 1 [facility] Cx Nom (U) RUN TIME: 1151 Specimen Inquiry [place] RUN USER: INTERFACE (15316) [facility] Department of Laboratories [address] [place] [address] PATIENT: KYLAH TUTTLE LOC: [facility] U # : [id number] HOME PHONE: AGE/SX: 43/F ROOM: RE04/16/[address] [facility] [address]: Amando Riley MD : 79 BED: DIS: STATUS: PRE IN LAB O/S: Specimen: [id number] Collected: 04/03/19-UNK Status: CO RAISSA Req#: [id number] Received: 04/03/19 Source: MILADYS Villalpando Desc: Subm Dr: Zeeshan Ruiz MD Ordered: URINE CULTURE Procedure Result Verified > URINE CULTURE Final 04/05/19-1151 COLONY COUNT > 10,000 BUT < 100,000 COLONIES/ML MODERATE GRAM POSITIVE RODS (TWO TYPES) MODERATE GRAM POSITIVE COCCI (TWO TYPES) COMMENT: PROBABLE URETHRAL CONTAMINATION NO SENSITIVITY PERFORMED END OF REPORT Comment: Performed By: #### CULTUR ## ##[address] [address] urinalysis (no microscopic) on 2019-04-03 Appearance (U) CLEAR CLEAR Normal 04-03-2019 [facility] (71685) Comment: Order Comment: Comment: PRE OP Performed By: #### URDIP ### [address] [address] Color (U) STRAW YELLOW Abnormal 04-03-2019 [facility] (66119) Comment: Order Comment: Comment: PRE OP Performed By: #### URDIP ### [address] [address] Glucose Ql (U) NEG NEG Normal 04-03-2019 [facility] (65266) Comment: Order Comment: Comment: PRE OP Performed By: #### URDIP ### [address] [address] Nitrite Ql (U) NEG NEG Normal 04-03-2019 [facility] (49673) Comment: Order Comment: Comment: PRE OP Performed By: #### URDIP ### [address] [address] pH (U) 5.0 4.6-8.0 [pH] Normal 04-03-2019 [facility] (73478) Comment: Order Comment: Comment: PRE OP Performed By: #### URDIP ### [address] [address] Protein Ql (U) NEG NEG Normal 04-03-2019 [facility] (47515) Comment: Order Comment: Comment: PRE OP Performed By: #### URDIP ### [address] [address] Specific gravity (U) 1.011 1.002-1.[address] [place] [address] [Rel [facility]] [facility] (49570) Comment: Order Comment: Comment: PRE OP Performed By: #### URDIP ### [address] [address] URINE ASCORBIC ACID NEG NEG Normal 04-03-2019 [facility] (75991) Comment: Order Comment: Comment: PRE OP Performed By: #### URDIP ### [address] [address] URINE BILE NEG NEG Normal 04-03-2019 [facility] (22592) Comment: Order Comment: Comment: PRE OP Performed By: #### URDIP ### [address] [address] URINE HEMOGLOBIN NEG NEG Normal 04-03-2019 [facility] (65493) Comment: Order Comment: Comment: PRE OP Performed By: #### URDIP ### [address] [address] URINE KETONE NEG NEG Normal 04-03-2019 [facility] (11766) Comment: Order Comment: Comment: PRE OP Performed By: #### URDIP ### [address] [address] URINE LEUKOCYTES NEG NEG Normal 04-03-2019 [facility] (65622) Comment: Order Comment: Comment: PRE OP Performed By: #### URDIP ### [address] [address] Urobilinogen Qn (U) NEG <2.0 Normal 04-03-2019 [facility] (02134) Comment: Order Comment: Comment: PRE OP Performed By: #### URDIP ### #[place] [address] type and screen on 2019-04-03 TYPE AND SCREEN BLOOD TYPE Normal 04-03-[address] [facility] ABPL [place] (64788) ANTIBODY SCREEN NEGATIVE Comment: Performed By: #### TS ####TW [address] [address] ptinr on 2019-04-03 INR Coag (PPP) [Relative 0.9 {INR} Normal 04-03 [facility] time] [place] [facility] (19785) Comment: Result Comment: INR IS TO BE USED ONLY FOR PATIENTS ON STABLE ORAL ANTICOAGULANT THERAPY STANDARD THERAPY INR 2.0-3.0 HIGHER THERAPY INR 2.5-3.5 (CHEST, VOL. 108(4,SUPPL.) :231S-246S, 1994) Performed By: #### PTINR, AP TT #### [facility] [address] [address] PT Coag (PPP) [Time] 9.6 9.9-11.6 SEC Low 9 [facility] [place] (24786) Comment: Performed By: #### PTINR, TIA TT #### [facility] [address] [place] [address] ekgi on 2019-04-03 EKGI [facility] Normal 04-03 [facility] (28346) [address] [place] [address] EKG Report KYLAH TUTTLE [id number] PRE IN [id number] Zeeshan Ruiz MD SINUS RHYTHM INCOMPLETE RIGHT BUNDLE BRANCH BLOCK RIGHT VENTRICULAR HYPERTROPH POSSIBLE ANTERIOR MYOCARDIAL INFARCTION, OF INDETERM INATE AGE ABNORMAL ECG Electronically signed by Darin FAULKNER Apr 03 201 9 11:44AM cxr on 2019-04-03 CXR Name: KYLAH TUTTLE Normal 04-03-20 19 [facility] Phys: Zeeshan Ruiz MD [place] ([id number]) : 1975 Age: 43 Sex: F Acct: [id number] Loc: [facility] Exam Date: 04/03/2019 Status: PRE IN Radiology No: Unit No: [id number] PH: [phone] Diagnosis: MORBID OBESITY EXAM: [id number] CHEST-STANDARD FRONTAL LAT Reason For Procedure: PRE OP STUDY: CHEST-STANDARD FRONTAL LAT CLINICAL INDICATION: Preop evaluation for morbid obesity TECHNIQUE: Two-view chest x-ray COMPARISON: December 28, 2018 FINDINGS: The heart size is stable. The hilar and vascular s tructures are unremarkable. The lungs are well-inflated and clear. No acute airspace disease, pneumothorax or pleural fluid seen. The osseous structures appear similar with mild scoliosis and spurring. The included upper abdomen is u nremarkable. IMPRESSION: NO ACUTE PROCESS REPORT ELECTRONICALLY SIGNED BY: Baldomero Grier D.O. 04/03/2019 11:46 AM REPORT SIGNED IN OTHER VENDOR SYSTEM 04/03/2019 Reported By: Baldomero Grier DO CC: Technologist: LUCIEN SANDY, RT/R/M/CT Transcribed Date/Time: 04/03/2019 (1144) Outpatient Coding Specialist: LYDIA Printed Date/Time: 04/03/2019 (9430) PAGE 1 Signed Report comprehensive metabolic on 2019-04-03 ADJUSTED CALCIUM 9.5 MG/DL Normal 04-03-2019 [facility] (88919) Comment: Performed By: #### PROF #### [facility] [address] [address] Albumin [Mass/Vol] 3.4 3.4-5.0 GM/DL Normal 04-03-2019 [facility] (12086) Comment: Performed By: #### PROF #### [facility] [address] [address] Albumin/Globulin [Mass 1.0 1.1-1.8 {ratio} Low 019 [facility] ratio] [facility] (11316) Comment: Performed By: #### PROF #### [facility] [address] [address] ALP [Catalytic 75 45-117 U/L Normal 04-03-2019 [facility] activity/Vol] [facility] (49486) Comment: Performed By: #### PROF #### [facility] [address] [address] ALT [Catalytic activity/Vol] 32 13-61 U/L Normal 0 04-03-2019 [facility] (80764) Comment: Result Comment: Falsely depr essed or falsely elevated results may occur on samples drawn from patients taking Sulfasalazine and Sulfapyridine. Performed By: #### PROF #### [facility] [address] [address] Anion gap [Moles/Vol] 10.1 0-16 mmol/L Normal 04-03-20 [facility] (61227[facility] Comment: Performed By: #### PROF #### [facility] [address] [address] AST [Catalytic activity/Vol] 22 15-37 U/L Normal 0 04-03-2019 [facility] (48248) Comment: Result Comment: Falsely depr essed or falsely elevated results may occur on samples drawn from patients taking Sulfasalazine and Sulfapyridine. Performed By: #### PROF #### [facility] [address] [address] Bilirubin Ql (U) 0.40 0.0-1.0 MG/DL Normal 04-03-2019 [facility] [place] (56294) Comment: Performed By: #### PROF #### [facility] [address] [address] Calcium [Mass/Vol] 9.0 8.5-10.1 MG/DL Normal 04-03-2019 [facility] (95611) Comment: Performed By: #### PROF #### [facility] [address] [address] Chloride [Moles/Vol] 105 98-107 MMOL/L Normal 9 [facility] [place] (00723) Comment: Performed By: #### PROF #### [facility] [address] [address] Creatinine [Mass/Vol] 0.90 0.55-1.02 MG/DL Normal 04-03-20 19 [facility] [place] (91766) Comment: Performed By: #### PROF #### [facility] [address] [address] GFR/1.73 sq M > 60 >60 mL/min/{1.73_m2} Normal 9 [facility] predicted among [facility] (62932) blacks MDRD (S/P/Bld) [Vol rate/Area] Comment: Performed By: #### PROF #### [facility] [address] [address] GFR/1.73 sq M > 60 >60 mL/min/{1.73_m2} Normal 9 [facility] predicted among [facility] (85798) non-blacks MDRD (S/P/Bld) [Vol rate/Area] Comment: Result Comment: Average GFR for 40-49 years old = 99 ml/min/1.73 sq.m Chronic Kidney Disease - GFR generally <60 ml/min/1.73 sq.m Kidney Failure - GFR general ly <15 ml/min/1.73 sq.m Performed By: #### PROF #### [facility] [address] [address] Glucose [Mass/Vol] 98 70-110 MG/DL Normal 04-03-2019 [facility] [place] (21908) Comment: Result Comment: Falsely depr essed or falsely elevated results may occur on samples drawn from patients taking Sulfasalazine and Sulfapyridine. ADA Guidelines for Diabetes: Fasting glucose <100 = Malia l fasting glucose. Fasting glucose 100-125 = Im paired fasting glucose, also referred to as pre-diabetes . Fasting glucose >125 = Provi sional diagnosis of diabetes. Diagnosis must be confirmed by repeat testing on a . Performed By: #### PROF #### [facility] [address] [address] Potassium [Moles/Vol] 4.1 3.5-5.1 MMOL/L Normal 04-03-20 19 [facility] ([address]91) Comment: Performed By: #### PROF #### [facility] [address] [address] Protein [Mass/Vol] 6.9 6.4-8.2 GM/DL Normal 04-03-2019 [facility] [place] (80003) Comment: Performed By: #### PROF #### [facility] [address] [address] Sodium [Moles/Vol] 135 136-145 MMOL/L Low 04-03-2019 [facility] [place] (62946) Comment: Performed By: #### PROF #### [facility] [address] [address] TOTAL CO2 24 21-32 MMOL/L Normal 04-03-2019 [facility] (74839) Comment: Result Comment: TCO2 test me asures total amount of CO2 in the blood, which occurs mostly in the form of bicarbonate (HCO3). Performed By: #### PROF #### [facility] [address] [address] Urea nitrogen [Mass/Vol] 10 7-18 MG/DL Normal 04-03 [facility] (91877) Comment: Performed By: #### PROF #### [facility] [address] [address] Urea nitrogen/Creatinine 11.1 0-30 mg/mg Normal 04-03 [facility] [Mass ratio] [place] [facility] (65300) Comment: Performed By: #### PROF #### [facility] [address] [address] cbc auto diff (reflex manual) on 2019-04-03 Basophils (Bld) [#/Vol] 0.00 0.0-0.2 x10 3 Normal 2018 [facility] (44426) Comment: Performed By: #### CBCAD ### # [facility] [address] [address] Basophils/100 WBC (Bld) 0.5 0.0-1.5 % Normal 2018 [facility] (02364) Comment: Performed By: #### CBCAD ### # [facility] [address] [address] EOSINOPHIL % 2.1 0.0-10.0 % Normal 04-03-2019 [facility] (41534) Comment: Performed By: #### CBCAD ### # [facility] [address] [address] Lymphocytes (Bld) 1.80 1.0-4.8 x10 3 Normal 04-03-2019 [facility] [#/Vol] [place] (72802) Comment: Performed By: #### CBCAD ### # [facility] [address] [address] Lymphocytes/100 WBC (Bld) 23.5 13.0-47.0 % Normal - [facility] [place] (63241) Comment: Performed By: #### CBCAD ### # [facility] [address] [address] MCV (RBC) [Entitic vol] 92.7 78-102 fl Normal 2018 [facility] [place] (95354) Comment: Performed By: #### CBCAD ### # [facility] [address] [address] MEAN ROBBIE HGB CONC 32.9 31.0-37.0 g/dl Normal 04-03-2019 [facility] [place] (12488) Comment: Performed By: #### CBCAD ### # [facility] [address] [address] MEAN CORPUSCULAR HGB 30.5 26.0-34.0 pg Normal 9 [facility] [place] (48201) Comment: Performed By: #### CBCAD ### # [facility] [address] [address] Monocytes (Bld) [#/Vol] 0.60 0.0-1.0 x10 3 Normal 2018 [facility] [place] (67301) Comment: Performed By: #### CBCAD ### # [facility] [address] [address] Monocytes/100 WBC (Bld) 7.7 0.0-10.0 % Normal 2018 [facility] [place] (76788) Comment: Performed By: #### CBCAD ### # [facility] [address] [address] Neutrophils (Bld) 5.10 1.8-7.7 x10 3 Normal 04-03-2019 [facility] [#/Vol] [place] (79565) Comment: Performed By: #### CBCAD ### # [facility] [address] [place] [address] Neutrophils/100 WBC (Bld) 66.2 40.0-80.0 % Normal 03-11 [facility] [place] (00768) Comment: Performed By: #### CBCAD ### # [facility] [address] [address] Platelet mean volume 9.8 7.5-10.7 fl Normal 9 [facility] (Bld) [Entitic vol] [place] (57336) Comment: Performed By: #### CBCAD ### # [facility] [address] [address] Platelets (Bld) [#/Vol] 237 150-350 x10 3 [facility] 2018 [facility] Comment: Performed By: #### CBCAD ### # [facility] [address] [address] RBC (Bld) [#/Vol] 4.70 4.00-5.20 x10 6 Normal 04-03-2019 [facility] [place] le (50197) Comment: Performed By: #### CBCAD ### # [facility] [address] [address] RED CELL WIDTH 14.5 11.5-14.5 % Normal 04-03-2019 [facility] (47299) Comment: Performed By: #### CBCAD ### # [facility] [address] [address] TOTAL EO 0.20 0-1.0 x10 3 Normal 04-03-2019 [facility] (38593) Comment: Performed By: #### CBCAD ### # [facility] [address] [address] WBC (Bld) [#/Vol] 7.7 4.5-11.0 x10 3 Normal 04-03-2019 [facility]58170[facility] Comment: Performed By: #### CBCAD ### # [facility] [address] [address] act par thrombo time on 2019-04-03 ACT PAR THROMBO TIME 23 22-33 SEC Normal 9 [facility] Poonam gina (42699) Comment: Result Comment: THERAPEUTIC APTT RANGE: 41-61 SECONDS NEW THERAPEUTIC RANGE EFFECT KIMBERLYN 11/29/2018 Performed By: #### PTINRTIA TT #### [facility] [address] [address] surgical pathology on 2019-01-18 SURGICAL Normal 01-18-2019 [facility] RUN DATE: 01/19/19 Laboratory [facility] RUN TIME: 1359 Specimen Inquiry [place] RUN USER: INTERFACE (91166) [facility] Department of Laboratories [address] [place], [place] [id number] PATIENT: KYLAH TUTTLE LOC: [facility] U #: [id number] HOME PHONE: AGE/SX: 43/F ROOM: RE01/18/[address]: Juancho Elder MD : 79 BED: DIS: STATUS: REG [facility] LAB O/S: Specimen : [id number] Date Collected: 01/18/19 Surgeon : Juancho Elder MD Date Received : 01/18/19 Date Reported : 01/19/19 FINAL DIAGNOSIS GASTRIC ANTRUM, BIOPSY: BENIGN GASTRIC MUCOSA WITH CHANGES SUGGESTIVE OF CHEMICAL/RE ACTIVE GASTROPATHY AND A MINUTE LYMPHOID AGGREGATE. IMMUNOSTAIN FOR H. PYLORI IS NEGATIVE. Julian Gabriel M.D. Pathologist 01/19/19 SPECIMEN: Antral Biopsy PRE POST OP Dx (Clinical Dx): Dyspepsia O.R. PROCEDURE: EGD GROSS EXAMINATION: Specimen labeled as antral biopsy. Specimen consists of sing le fragment of barber-benz tissue measuring 0.2 x 0.2 cm. Submitted entirel y in one cassette for microscopic examination. SN/gb COMMENT: Unless otherwise specified, final diagnosis is base d on microscopic examination of the specimen. Signed-Out: Julian Gabriel M.D. (signa ture on file) 01/19/19 My electronic signature is a ttestation that I have personally reviewed the submitted material(s) and the final report reflects that evaluation. END OF REPORT Comment: Performed By: #### S #### [place] [address] en2i on 2019-01-18 EN2I [facility] Normal 01-19-20 [place] [address] [id number] [facility] KYLAH TUTTLE [facility] DR: Juancho Elder MD ([id number]) ATT DR: Juancho Elder MD MR [id number] ENDOSCOPY RECORD #2 ADMIT DATE: ======== ESOPHAGOGASTRODUODENOSCOPY REPORT PATIENT NAME: Kylah Tuttle : 1975 SEX: F EXAM DATE: 01-18-2019 ATTENDING PHY:Juancho Elder M.D. REFERRAL: ACCOUNT NO: [id number] TIME Start:12:09 PM End: 12:12 PM INDICATION : Heartburn - R12 candidate for SLEEVE CONSENT : Informed consent was obtained from the patient aft er providing any opportunity for questions. PREPARATION : EKG pulse, blood pressure and oxygen saturatio n monitored. INSTRUMENT : GIF H180 #[id number] ANESTHESIA : As Per Anesthesia EBL : 0 cc PROCEDURE : The Gastroscope was gently passed through the in cisoral orifice into the oral cavity and under direct visualization the esophagus was intubated. The endoscope was passed down the e sophagus, through the stomach and into the 2nd Portion. Color, texture , mucosa and anatomy of Esophagus, Stomach and Duodenum were carefully ex amined with the scope. The patient tolerated the procedure well and ther e were no complications. After completion of the examination, patient was transferred to the recovery room. FINDINGS Oropharynx - Normal Esophagus - Normal EG-Junction - Normal Cardia - Normal Fundus - Normal Body - Gastritis, chronic superficial without bleeding Antrum - Biopsy taken. Pylorus - Normal Duodenum Bulb - Normal 2nd Portion - Normal 3rd Portion - Not Seen COMMENTS : as above IMPRESSION : Chronic superficial gastritis without bleeding - K29.30 PLAN : Wait for pathology report anti reflux position elevate head of bed 8 inches all time [place], [place] [address] [id number] [address]: Juancho Elder MD ATT DR: Juancho Elder MD MR [id number] ENDOSCOPY RECORD #2 ADMIT DATE: ======== Avoid: citrus juices, cigarettes, chocolate, tight fitting clothing, coffee and other caffeinated beverages, carbonated beverages, fatty and fried foods, anticholinergic medications, medications which decrease LES tone (Ca channel blockers, theophyline perparations). regular diet Low fat diet omeprozole 20 mg q day CPT CODES : 83366 - EGD with biopsy, single or multiple Report Signed Electronically in MD Reports by Attending Louis mac. Electronic Signature: ' Date: 01/18/2019 12:22:06 PM' Juancho Elder M.D. Page 1 of 1 IOE ,MD Juancho Elder MD Report Signed Electronically in MD Reports cc: ENDOSCOPY RECORD pft on 2018-12-28 PFT [facility] Normal 12-29-19 [facility] CARDIOPULMONARY SERVICES System [place], [place] [address] ([id number]) PULMONARY FUNCTION REPORT Patient : KYLAH TUTTLE Status : REG REF Age : 43 Room/Bed : : 77 Acct. Number : [id number] Sex : F M.R. Number : [id number] Ordering Phys : Amando Riley MD Admitting Dx : SURGERY CLEARANCE Date of Study : 12/28/18 ORDERING PHYSICIAN: Amando Riley MD REASON FOR STUDY: Bariatric surgery assessment. HISTORY OF PRESENT ILLNESS: This is a 43-year-old female, height of 65 inches, weight of 320 pounds, BMI of 53 . The patient reported a history of tobacco use, 25 pack years, to bacco cessation was reported four months ago. SPIROMETRY: The FVC of 2.95 liters, 77 predicted value, FEV1 of 2.44 liters, 79 percent predicted value, ratio of FEV1/FV C 83 percent. Flow volume loop was suggestive of very mild obstructive air way pattern. Post bronchodilator FEV1 and FVC did not note any significant changes. Lung volumes: Thoracic gas volume 67 percent, residual volum e 66 percent, total lung capacity 79 percent. Airway resistance specific conductance noted normal. Lung diffusion normal at 75 percent recorded. FINAL IMPRESSION: Evidence of mild restrictive lung disease was noted, possibly related to the obesity may be considered . Clinical correlation would be advised, the patient's clinica l history and radiology data. KYLAH TUTTLE - /FN/b DOC#: [id number]/JOB#: [id number] [facility] CARDIOPULMONARY SERVICES [place], [place] [address] PULMONARY FUNCTION REPORT Patient : KYLAH TUTTLE Status : REG REF Age : 43 Room/Bed : : 77 Acct. Number : [id number] Sex : F M.R. Number : [id number] Ordering Phys : Amando Riley MD Admitting Dx : SURGERY CLEARANCE Date of Study : 12/28/18 D..... 12/28/18 1548 M.D. T..... 12/28/18 1551 FN Sebastien May MD Signed Electronically 12/30/18 1102 cc: cxr on 2018-12-28 CXR Name: KYLAH TUTTLE 12-28-2018 [facility] Phys: Amando Riley MD [place] ([id number]) : 1975 Age: 43 Sex: F Acct: [id number] Loc: [facility] Exam Date: 12/28/2018 Status: REG REF Radiology No: Unit No: [id number] PH: [phone] Diagnosis: SURGERY CLEARANCE EXAM: [id number] CHEST-STANDARD FRONTAL LAT Reason For Procedure: MORBID OBESITY STUDY: CHEST-STANDARD FRONTAL LAT CLINICAL INDICATION: Morbid obesity, preoperative study. COMPARISON: None TECHNIQUE: PA and lateral views of the chest were obtained. FINDINGS: Lungs are clear and there is no pleural effusion or pneumoth orax. Cardiomediastinal silhouette is normal. No acute bony or upp er abdominal abnormality is seen. IMPRESSION: NO ACUTE ABNORMALITY IN THE CHEST. SITE: P REPORT ELECTRONICALLY SIGNED BY: Marisol Salcedo MD 12/28/2018 2 :54 PM REPORT SIGNED IN OTHER VENDOR SYSTEM 12/28/2018 Reported By: Marisol Salcedo MD CC: Technologist: PEGGY SY, RT/R Transcribed Date/Time: 12/28/2018 (1455) Outpatient Coding Specialist: LYDIA Printed Date/Time: 12/28/2018 (0556) PAGE 1 Signed Report 25-hydroxy d2+d3 on 2018-11-27 25-Hydroxy D Total 17.4 30.0-100.0 ng/mL Low 11-27-2018 [facility] (71443 ) Comment: Performed By: #### HBA1C ### # [facility] Routine Lab [address] [place], [place] [address] #### D2D3 #### [facility] Chemistry [address] [place], [place] [address] 25-Hydroxy D2 <4.0 Normal 11-27-2018 [facility] (34599) Comment: Performed By: #### HBA1C ### # [facility]ine Lab [address] [place], [place] [address] #### D2D3 #### [facility] Chemistry [address] [place], [place] [id number] 25-Hydroxy D3 17.4 ng/mL Normal 11-27-2018 [facility] (51020) Comment: Performed By: #### HBA1C ### # [facility] Routine Lab [address] [place], [place] [address] #### D2D3 #### [facility] Chemistry [address] [place], [place] [address] 25-hydroxy d2+d3 [ccl] on 2018-11-27 25-HYDROXY D2+D3 [CCL] Normal 019 [facility] (03092) Comment: Result Comment: _25-HYDROXY D2+D3 [CCL]_ 25-HYDROXY D2+D3 [CCL] Reported: 11/27/2018 08:16 S tatus=F TEST RESULT FLAG RANGE UNITS 25-Hydroxy D2 <4.0 ng/mL .rfl.COMPLETE.ATLR 25-Hydroxy D3 17.4 ng/mL .rfl.COMPLETE.ATLR 25-Hydroxy D Total 17.4 L 30 .0-100.0 ng/mL 11/27/1818.rfl.COMPLETE.ATLR (NOTE) Deficient: <20.1 ng/mL Insufficient: 20.1 - 29.9 ng /mL Sufficient: 30.0 - 100.0 ng/ mL Toxic: >150.0 ng/mL Reference: Bo CUTLER, N Engl J Med (2007)357:266-81 This test was developed and its performance characteristics determined by the Pathology and Laboratory Medicine [place] at the [facility]. The U.S. F ood and Drug Administration has not approved or cleared this elba t, however, FDA clearance or approval is not currently required for c linical use. [facility] [address] [place] [address] Lori Estrada M.D. [id number] Performed By: #### [id number] ## ## [facility],[address] [place], [place] [id number] vitamin a [ccl] on 2018-11-25 VITAMIN A [CCL] Normal 11-25-2018 [facility] (98534) Comment: Result Comment: _VITAMIN A [ CCL]_ VITAMIN A [CCL] Reported: 11/24/2018 15:13 S tatus=F TEST RESULT FLAG RANGE UNITS Vitamin A 0.51 0.30-1.20 mg/ L 11/24/18.1516.rfl.COMPLETE.ATLR This test was developed and its performance characteristics determined by [facility]'s [facility] [place] ([facility]). It has not been cleared or a pproved by the FDA. [facility] is regulated under CLIA as qualified to perform high -complexity testing. This test is used for clinic al purposes. It should not be regarded as investigational or for [facility]. [facility] [address] [place] [address] Lori Estrada M.D. [id number] Performed By: #### [id number] ## ## [facility],[address] [place], [place] [id number] vitamin a on 11-24 Vitamin A 0.51 0.30-1.20 mg/L Normal 11-24-2018 [facility] (37521) Comment: Performed By: #### PAT #### [facility] Chemistry [facility] [place] [id number] hgb a1c [ccl] on 28-11-13 HbA1c (Bld) [Mass fraction] Normal [facility] (34098) Comment: Result Comment: _HEMOGLOBIN A1C_ HGB A1C [CCL] Reported: 11/23/2018 09:13 S tatus=F TEST RESULT FLAG RANGE UNITS Hemoglobin A1c 5.8 H 4.3-5.6 % 11/23/18.0916.rfl.COMPLETE.ATLR [employer] n guidelines indicate that patients with HgbA1c in the range 5.7-6.4% are at in creased risk for development of diabetes, and intervention by lifestyle mo dification may be beneficial. HgbA1c greater or equal to 6.5% is considered diagnostic of diabetes. Est. Average Glucose 120 mg/ dL 11/23/18.0916.rfl.COMPLETE.ATLR eAG: (Estimated average gluc ose) is a calculated value from HgbA1c and is inside sales account representative of the averag e blood glucose level in the last 2-3 month period. [facility] [address] [place] [address] Lori Estrada M.D. [id number] Performed By: #### [id number] ## ## [facility],[address] [place], [place] [address] hemoglobin a1c on Hemoglobin A1c/Hemoglobin.total 5.8 4.3-5.6 % High 11-23-2018 [facility] mass fraction (Bld) Reference Lab (33934) Comment: Performed By: #### HBA1C ### # [facility] Routine Lab [address] [place] [address] #### D2D3 #### [facility] Chemistry [address] [place] [address] Hemoglobin A1c/Hemoglobin.total 120 mg/dL Normal 11-23-2018 [facility] mass fraction (Bld) Reference Lab (92602) Comment: Performed By: #### HBA1C ### # [facility] Routine Lab [address] [place] [address] #### D2D3 #### [facility] Chemistry [address] [place] [phone] vitamin b-12 on 06-11-13 Cobalamin (Vitamin B12) 480 180 - 914 pg/mL Normal 2018 [facility] [Mass/[facility]] [facility] (86910) Comment: Performed By: #### [id number] ## ## [facility] sar[facility],[address] [place] [address] tsh on 2018-11-22 TSH Qn 3.59 0.34 - 5.60 uIU/ml Normal 11-22-2018 [facility] (56758) Comment: Performed By: #### [id number] ## ## [facility],[address] [place] [address] lipase on 2018-11-10 3 Lipase [Catalytic 6.0 18.0 - 51.0 U/L Low 11-22-2018 [facility] activity/Vol] Hospit al (10189) Comment: Performed By: #### [id number] ## ## [facility],[address] [place] [address] iron and uibc on 28-11-12 Iron [Mass/Vol] 65 50 - 170 ug/dl Normal 11-22-2018 [facility] (95288) Comment: Performed By: #### [id number] ## ## [facility],[address] [place] [address] Sat% 19 20 - 50 % Low 11-22-2018 [facility] (64097) Comment: Performed By: #### [id number] ## ## [facility],[address] [facility] [address] TIBC 338 250 - 450 ug/dl Normal 11-22-2018 [facility] (56313) Comment: Performed By: #### [id number] ## ## [facility],[address] [place] [address] UIBC 273 155 - 355 ug/dL Normal 11-22-2018 [facility] (93593) Comment: Performed By: #### [id number] ## ## [facility],[address] [facility] [address] folates on FOLATES 16.6 3.5 - 20.0 ng/ml Normal 11-22-2018 [facility] (44488) Comment: Performed By: #### [id number] ## ## [facility],[address] [facility] [address] ferritin on 2018-11 Ferritin [Mass/Vol] 150 10 - 291 ng/mL Normal 11-22-2018 [facility] ( 42105) Comment: Performed By: #### [id number] ## ## [facility],[address] [facility] [address] cmp with egfr on 28-11-12 Age - Reported 42 years Normal 11-22-2018 [facility] (78105) Comment: Performed By: #### [id number] ## ## [facility],[address] [facility] [address] Albumin [Mass/Vol] 4.0 3.4 - 4.8 g/dL Normal 11-22-2018 [facility] ( 06245) Comment: Performed By: #### 942309 ## ## [facility],[address] [facility] [address] Albumin/Globulin [Mass 1.4 0.9 - 1.6 {ratio} Normal [address] [place] [address] ([address]) Comment: Performed By: #### [id number] ## ## [facility],[address] [facility] [address] ALK PHOS 60 38 - 126 U/L Normal 11-22-2018 [facility] (19500) Comment: Performed By: #### [id number] ## ## [facility] [facility] [address] ALT/SGPT 15 8 - 35 U/L Normal 11-22-2018 [facility] (33772) Comment: Performed By: #### [id number] ## ## [facility],[address] [facility] [address] Anion gap [Moles/Vol] 12 10 - 20 mmol/L Normal 11-22-19 [facility] ( 02183) Comment: Performed By: #### 957102 ## ## [facility],[address] [facility] [address] AST/SGOT 15 13 - 39 U/L Normal 11-22-2018 [facility] (65333) Comment: Performed By: #### [id number] ## ## [facility],[address] [place] [address] B/C RATIO 12 0 - 30 ratio Normal 11-22-2018 [facility] (45031) Comment: Performed By: #### [id number] ## ## [facility],[address] [place] [address] Bilirubin [Mass/Vol] 0.5 0.0 - 1.5 mg/dl Normal 9 [facility] ( 70033) Comment: Performed By: #### 136023 ## ## [facility],[address] [place] [address] [place] [address] Calcium [Mass/Vol] 9.6 8.6 - 10.2 mg/dl Normal 11-22-2018 [facility] ( 66032) Comment: Performed By: #### [id number] ## ## [facility],[address] [place] [address] Chloride [Moles/Vol] 102 98 - 107 mmol/L Normal 9 [facility] ( 85400) Comment: Performed By: #### 814897 ## ## [facility],[address] [place] [address] CO2 [Moles/Vol] 25.7 21.0 - 31.0 mmol/L Normal 11-22-2018 [facility] ( 20254) Comment: Performed By: #### 737180 ## ## [facility],[address] [place] [address] Creatinine [Mass/Vol] 0.9 0.6 - 1.2 mg/dl Normal 11-22-19 19 [facility] ( 23210) Comment: Performed By: #### 863207 ## ## [facility],[address] [place] [address] GFR/1.73 sq M predicted among Normal 11-22-2018 [facility] non-blacks MDRD (S/P/Bld) [Vol Hospital (67230) rate/Area] Comment: Result Comment: COMPREHENSIV E METABOLIC PANEL Performed By: #### [id number] ## ## [facility],[address] [place] [address] GFR/1.73 sq M >60 60 - 999 mL/min/{1.73_m2} Normal 9 [facility] predicted among [place] [facility] non-blacks MDRD (000 00) (S/P/Bld) [Vol rate/Area] Comment: Result Comment: ACCORDING TO THE NATIONAL KIDNEY DISEASE EDUCATION PROGRAM(NKDE), A NORMAL eGFR IS A VALUE GREATER THAN OR E QUAL TO 60 ML/MIN/1.73 SQ METERS. CHRONIC KIDNEY DISEASE: <60m L/MIN/1.73 SQ METERS KIDNEY FAILURE: <15mL/MIN/1. 73 SQ METERS THIS TEST SHOULD ONLY BE USE D FOR PATIENTS 18 YEARS OF AGE AND OLDER. Performed By: #### [id number] ## ## [facility],[address] [place] [address] Globulin (S) [Mass/Vol] 2.8 1.5 - 3.8 G/DL Normal 2018 [facility] ( 01233) Comment: Performed By: #### [id number] ## ## [facility],[address] [place] [address] Glucose [Mass/Vol] 125 74 - 106 mg/dl High 11-22-2018 [facility] (04610) Comment: Performed By: #### [id number] ## ## [facility],[address] [place] [address] Potassium [Moles/Vol] 4.1 3.5 - 5.1 mmol/L Normal 11-22-19 19 [facility] ( 09078) Comment: Performed By: #### [id number] ## ## [facility],[address] [place] [address] Protein [Mass/Vol] 6.8 6.4 - 8.3 g/dl Normal 11-22-2018 [facility] ( 06594) Comment: Performed By: #### [id number] ## ## [facility],[address] [place] [address] Sodium [Moles/Vol] 136 136 - 145 mmol/l Normal 11-22-2018 [facility] ( 41277) Comment: Performed By: #### [id number] ## ## [facility],[address] [place] [address] Urea nitrogen [Mass/Vol] 11 6 - 20 mg/dl Normal 11-22 [facility] ( 89644) Comment: Performed By: #### 610474 ## ## [facility],[address] [place] [address] amylase on Amylase [Catalytic 16 29 - 103 U/L Low 11-22-2018 [facility] activity/Vol] Hospit al (16979) Comment: Performed By: #### [id number] ## ## [facility],[address] [place] [address] gc/chlam amplification swab [ccl] on 2018-11-13 GC/CHLAM AMPLIFICATION SWAB [CCL] Normal 11-13-2018 [facility] ( 94466) Comment: Result Comment: _GC/CHLAMYDI A AMPLIFICATION [CCL]_ GC/CHLAM AMPLIFICATION SWAB [CCL] Reported: 11/12/2018 13:52 S tatus=F TEST RESULT FLAG RANGE UNITS GC/Chlam Amp Source CERVICAL 11/12/18.rfl.COMPLETE.ATLR GC Amplification *See Below* 11/12/18.rfl.COMPLETE.ATLR Negative for Neisseria gonor rhoeae by amplification. Chlamydia Amplif *See Below* 11/12/18.rfl.COMPLETE.ATLR Negative for Chlamydia trach omatis by amplification. [facility] [address] [place] [address] Lori Estrada M.D. [id number] Performed By: #### [id number] ## ## [facility],[address] [place] [address] lipid profile on 28-10-10 Cholesterol [Mass/Vol] 230 0 - 200 mg/dl High 019 [facility] ( 32858) Comment: Performed By: #### [id number] ## ## [facility],[address] [place] [address] Cholesterol in HDL 38 40 - 60 mg/dl Low 10-20-2018 [facility] [Mass/Vol] [facility] (47847) Comment: Performed By: #### 603946 ## ## [facility],[address] [place] [address] Cholesterol in LDL 131 0 - 129 mg/dl High 10-20-2018 [facility] [Mass/Vol] [facility] (45566) Comment: Performed By: #### [id number] ## ## [facility],[address] [place] [address] Cholesterol.total/Cholesterol in HDL 6.1 0.0 - 5.0 Hig h 10-20-2018 [facility] [Mass ratio] [facility] ( 39660) Comment: Performed By: #### 094549 ## ## [facility] [facility] [address] Lipid 1996 panel Normal 10-20-2018 [facility] (11626) Comment: Result Comment: LIPID PROFIL E Performed By: #### [id number] ## ## [facility],[address] [facility] [address] Triglyceride [Mass/Vol] 304 0 - 150 mg/dl High 2018 [facility] ( 47328) Comment: Performed By: #### [id number] ## ## [facility],[address] [facility] [address] cmp with egfr on 28-10-10 Age - Reported 42 years Normal 10-20-2018 [facility] (36005) Comment: Performed By: #### [id number] ## ## [facility],[address] [facility] [address] Albumin [Mass/Vol] 4.4 3.4 - 4.8 g/dL Normal 10-20-2018 [facility] ( 18100) Comment: Performed By: #### 085407 ## ## [facility] [place] [address] Albumin/Globulin [Mass 1.4 0.9 - 1.6 {ratio} Normal 019 [facility] ratio] [facility] (53518) Comment: Performed By: #### 141558 ## ## [facility] [facility] [address] ALK PHOS 62 38 - 126 U/L Normal 10-20-2018 [facility] (63764) Comment: Performed By: #### [id number] ## ## [facility] [facility] [address] ALT/SGPT 20 8 - 35 U/L Normal 10-20-2018 [facility] (46754) Comment: Performed By: #### [id number] ## ## [facility] [facility] [address] Anion gap [Moles/Vol] 11 10 - 20 mmol/L Normal 10-20-19 19 [facility] ( 20639) Comment: Performed By: #### [id number] ## ## [facility],[address] [place] [address]97 AST/SGOT 16 13 - 39 U/L Normal 10-20-2018 [facility] (78096) Comment: Performed By: #### [id number] ## ## [facility] [place] [address] 47054 B/C RATIO 9 0 - 30 ratio Normal 10-20-2018 [facility] (85768) Comment: Performed By: #### [id number] ## ## [facility] 31037 Bilirubin [Mass/Vol] 0.5 0.0 - 1.5 mg/dl Normal 9 [facility] ( 98844) Comment: Performed By: #### [id number] ## ## [facility],[address] [place] [address] 85972 Calcium [Mass/Vol] 10.0 8.6 - 10.2 mg/dl Normal 10-20-2018 [facility] ( 03385) Comment: Performed By: #### [id number] ## ## [facility],[address] [place] [address] 23278 Chloride [Moles/Vol] 103 98 - 107 mmol/L Normal 9 [facility] ( 13490) Comment: Performed By: #### [id number] ## ## [facility],[address] [place] [address] 15369 CO2 [Moles/Vol] 25.8 21.0 - 31.0 mmol/L Normal 10-20-2018 [facility] ( 26033) Comment: Performed By: #### [id number] ## ## [facility],[address] [place] [address] 85421 Creatinine [Mass/Vol] 0.9 0.6 - 1.2 mg/dl Normal 10-20-19 19 [facility] ( 38252) Comment: Performed By: #### [id number] ## ## [facility],[address] [place] [address] 54202 GFR/1.73 sq M predicted among Normal 10-20-2018 [facility] non-blacks MDRD (S/P/Bld) [[facility] (22755) rate/Area] Comment: Result Comment: COMPREHENSIV E METABOLIC PANEL Performed By: #### [id number] ## ## [facility],[address] [place] [address] 84836 GFR/1.73 sq M >60 60 - 999 mL/min/{1.73_m2} Normal 9 [facility] predicted among [facility] non-blacks MDRD (000 00) (S/P/Bld) [Vol rate/Area] Comment: Performed By: #### [id number] ## ## [facility],[address] [place] [address] 76238 Result Comment: ACCORDING TO THE NATIONAL KIDNEY DISEASE EDUCATION PROGRAM(NKDE), A NORMAL eGFR IS A VALUE GREATER THAN OR E QUAL TO 60 ML/MIN/1.73 SQ METERS. CHRONIC KIDNEY DISEASE: <60m L/MIN/1.73 SQ METERS KIDNEY FAILURE: <15mL/MIN/1. 73 SQ METERS THIS TEST SHOULD ONLY BE USE D FOR PATIENTS 18 YEARS OF AGE AND OLDER. Globulin (S) [Mass/Vol] 3.1 1.5 - 3.8 G/DL Normal 2018 [facility] ( 85748) Comment: Performed By: #### [id number] ## ## [facility],[address] [place] [address] 55803 Glucose [Mass/Vol] 107 74 - 106 mg/dl High 10-20-2018 [facility] (21979) Comment: Performed By: #### [id number] ## ## [facility],[address] [place] [address] 84650 Potassium [Moles/Vol] 4.2 3.5 - 5.1 mmol/L Normal 10-20-19 19 [facility] ( 86269) Comment: Performed By: #### [id number] ## ## [facility],[address] [place] [address] 00756 Protein [Mass/Vol] 7.5 6.4 - 8.3 g/dl Normal 10-20-2018 [facility] ( 91093) Comment: Performed By: #### [id number] ## ## [facility],[address] [place] [address] 29020 Sodium [Moles/Vol] 136 136 - 145 mmol/l Normal 10-20-2018 [facility] ( 14767) Comment: Performed By: #### [id number] ## ## [facility],[address] [place] [address] 37890 Urea nitrogen [Mass/Vol] 8 6 - 20 mg/dl Normal 10-20 [facility] ( 56685) Comment: Performed By: #### [id number] ## ## [facility],[address] [place] [address] 19882 cbc on 2018-10-20 Basophils (Bld) 0.10 0.00 - 0.10 x10EE3/UL Normal 10-20-2018 Олег [facility] [#/Vol] [facility] (78409) Comment: Performed By: #### [id number] ## ## [facility],[address] [place] [address] 34116 Basophils/100 WBC (Bld) 0.6 0.0 - 2.0 % Normal 2018 [facility] ( 11570) Comment: Performed By: #### [id number] ## ## [facility],[address] [place] [address] 46471 CBC Normal 10-20-2018 [facility] (50611) Comment: Result Comment: CBC-COMPLETE BLOOD COUNT Performed By: #### [id number] ## ## [facility],[address] [place] [address] 57633 Eosinophils (Bld) 0.20 0.00 - 0.50 x10EE3/UL Normal 10-20-2018 [facility] [#/Vol] [facility] (27864) Comment: Performed By: #### [id number] ## ## [facility],[address] [place] [address] 18647 Eosinophils/100 WBC (Bld) 1.6 0.0 - 7.0 % Normal 10-10 [facility] ( 31558) Comment: Performed By: #### [id number] ## ## [facility],[address] [place] [address] 79662 Erythrocyte distribution 15.0 12.0 - 15.6 % Normal [facility] (RBC) [Ratio] [facility] (26985) Comment: Performed By: #### [id number] ## ## [facility],[address] [place] [address] 60848 Hematocrit (Bld) [Volume 48.5 34.0 - 46.0 % High [facility] fraction] [facility] ( 02470) Comment: Performed By: #### [id number] ## ## [facility],[address] [place] [address] 65122 Hemoglobin (Bld) 16.2 12.0 - 16.0 g/dl High 10-20-2018 [facility] [Mass/Vol] [facility] (39229) Comment: Performed By: #### [id number] ## ## [facility],[address] [place] [address] 64671 Lymphocytes (Bld) 3.10 0.80 - 2.80 x10EE3/UL High 10-20-2018 [facility] [#/Vol] [facility] (30371) Comment: Performed By: #### [id number] ## ## [facility],[address] [place] [address] 95284 Lymphocytes/100 WBC (Bld) 28.1 20.0 - 45.0 % Normal [facility] ( 75875) Comment: Performed By: #### [id number] ## ## [facility],[address] [place] [address] 28252 MANUAL DIFF N/A Normal 10-20-2018 [facility] (17712) Comment: Performed By: #### [id number] ## ## [facility],[address] [place] [address] 27812 MCH (RBC) [Entitic mass] 31 27 - 33 pg Normal 10-20 [facility] ( 05998) Comment: Performed By: #### [id number] ## ## [facility],[address] [place] [address] 74048 MCHC (RBC) [Mass/Vol] 33 32 - 36 X10 3 Normal 10-20-19 19 [facility] ( 12693) Comment: Performed By: #### [id number] ## ## [facility],[address] [place] [address] 02713 MCV (RBC) [Entitic vol] 91 80 - 99 fl Normal 2018 [facility] ( 06663) Comment: Performed By: #### [id number] ## ## [facility],[address] [place] [address] 39901 Monocytes (Bld) 0.80 0.20 - 1.00 x10EE3/UL Normal 10-20-2018 Олег [place] [#/Vol] [facility] (89236) Comment: Performed By: #### [id number] ## ## [facility],[address] [place] [address] 37206 MONOS % 7.1 0.0 - 10.0 % Normal 10-20-2018 [facility] (89629) Comment: Performed By: #### [id number] ## ## [facility],[address] [place] [address] 97544 Morphology Darian (Bld) [Interp] N/A Normal 10-20-2018 [facility] ( 95198) Comment: Result Comment: {CD] Performed By: #### [id number] ## ## [facility],[address] [place] [address] 05904 Neutrophils (Bld) 6.90 1.50 - 7.10 x10EE3/UL Normal 10-20-2018 [facility] [#/Vol] [facility] (61703) Comment: Performed By: #### [id number] ## ## [facility],[address] [place] [address] 34973 Neutrophils/100 WBC (Bld) 62.6 46.0 - 76.0 % Normal [facility] ( 61879) Comment: Performed By: #### [id number] ## ## [facility],[address] [place] [address] 32931 Platelet mean volume 10.6 6.6 - 10.5 fl High 10-20-19 19 [facility] (d) [Entitic vol] [facility] (94611) Comment: Result Comment: AUTOMATED DI FFERENTIAL Performed By: #### [id number] ## ## [facility],[address] [place] [address] 25591 Platelets (Bld) 258 150 - 450 x10EE3/UL Normal 10-20-2018 [facility] [#/Vol] [facility] (86709) Comment: Performed By: #### [id number] ## ## [facility],[address] [place] [address] 46581 RBC (Bld) [#/Vol] 5.31 4.10 - 5.30 x 10EE6/UL High 9 [facility] ( 79985) Comment: Performed By: #### [id number] ## ## [facility],[address] [place] [address] 21802 WBC (Bld) [#/Vol] 11.1 4.5 - 10.8 x 10EE3/UL High 10-20-2018 [facility] ( 76682) Comment: Performed By: #### [id number] ## ## [facility],[address] [place], [place] [id number] Encounters Date Type Reason Provider Location 07-04-2015 Ambulatory SOHAIL (GINNER HELPER) [facility] ([id number]) 08-05-2019 - [facility] Saul rial visit [facility] ([phone]) JANNIE EDWARDS [facility] JANNIE CORDOVALER UNKNOWN PROVIDER UNKNOWN PROVIDER 08-04-2019 - Emergency EZEQUIEL Palencia [place] 08-05-2019 department patient EZEQUIEL DO JOHNSON Memoria l visit JANNIE [facility] (30949) EZEQUIEL DO ALEX VALDERRAMA CNP JERRY UNKNOWN PROVIDER UNKNOWN PROVIDER 06-25-2019 - Emergency Paresthesia of skin REID Pena erekasey 06-25-2019 department patient LEX ROBERTS Saul rial visit [facility] (70659 ) JANNIE Pickard [facility] JANNIE CORDOVALER UNKNOWN PROVIDER UNKNOWN PROVIDER 05-09-2019 - Emergency QAMAR Garcia moshe 05-09-2019 department patient [facility] PROVID[facility] UNKNOWN PROVIDER 10-13-2017 Evaluation and LEFT URETERAL STONE Seng Perla lity:[facility] inpatient 08-03-2019 - Patient encounter MIRELLA LORENZ MIRELLA Florez omerene 08-03-2019 procedure [facility] JANNIE RAMON [facility] (74181) UNKNOWN PROVIDER UNKNOWN PROVIDER 07-29-2019 - Patient encounter Follicular cyst of MIRELLA LORENZ MIRELLA [place] 07-29-2019 procedure the skin and [facility] subcutaneous tissue, JANNEI GINNER HELPER JERRY [facility]spital (61067) unspecified UNKNOWN PROVIDER UNKNOWN PROVIDER 11-22-2018 - [facility] ereme 11-22-2018 procedure [facility] ([phone]) JANNIE EDWARDS UNKNOWN PROVIDER UNKNOWN PROVIDER 11-10-2018 - Patient encounter Encounter for JANNIE EDWARDS Sixt[place] 11-10-2018 procedure screening for JANNIE GINNER HELPER [facility] malignant neoplasm JANNIE GINNER HELPER [facility] (30744) of cervix TYRON RITTER UNKNOWN PROVIDER UNKNOWN PROVIDER 10-20-2018 - Patient encounter Encounter for JANNIE EDWARDS [place] 10-20-2018 procedure general adult [facility] JANNIE GINNER HELPER [facility] (95009) without abnormal TYRON RITTER findings UNKNOWN PROVIDER UNKNOWN PROVIDER 10-20-2018 Encounter for Encounter for Dale [place] general adult general adult [facility] medical examination medical examination H ospital (19763) without abnormal without abnormal findings findings Procedures Procedure Name Date Provider Location Blood count hematocrit 04-03-2019 [facility] [place] (11433) Comment: Performed By: #### CBCAD ### # [facility] [address] [address] Blood count hemoglobin 04-03-2019 [facility] [place] (05731) Comment: Performed By: #### CBCAD ### # [facility] [address] [address] Payers Payer Name Policy Number Location [facility] MEDICAID [id number] [facility] ([id number]) [id number] [facility] [place] ([id number]) [id number] [facility] ([id number]) [id number] [facility] [place] ([id number]) [id number] [facility] [place] ([id number]) [id number] [facility] [place] ([id number]) [id number] [facility] [place] ([id number]) [id number] [facility] [place] ([id number]) [id number] [facility] [place] ([id number]) [id number] [facility] [place] ([id number]) The following information is from the original human readable contentNo Payer Records FoundNo Payer Records FoundNo Payer Records FoundNo Payer Records FoundNo Payer Records Found Summary Purpose Family History No Family History Records FoundNo Family History Records FoundNo Family History Records FoundNo Family History Records FoundNo Family History Records Found Advance Directives No Advanced Directives Records FoundNo Advanced Directives Records FoundNo Advanced Directives Records FoundNo Advanced Directives Records FoundNo Advanced Directives Records Found Additional Source Comments FOR RECORDS PERTAINING TO PATIENTS WHO ARE OR HAVE BEEN ENROLLED IN A CHEMICAL DEPENDENCY/SUBSTANCE ABUSE PROGRAM, SOME INFORMATION MAY BE OMITTED. This clinical summary was aggregated from multiple sources. Caution should be exercised in using it in the provision of clinical care. This summary normalizes information from multiple sources, and as a consequence, information in this document may materially changethe coding, format and clinical context of patient data. In addition, data may be omittedin some cases. CLINICAL DECISIONS SHOULD BE BASED ON THE PRIMARY CLINICAL RECORDS. [facility] provides no warranty or guarantee of the accuracy or completeness of information in this document. UNRECOGNIZED CONTENT PROVIDED BELOW FOR UNRECOGNIZED SECTION INFORMATION SOURCE DATE CREATED AUTHOR AUTHOR'S ORGANIZATIO N 03/30/2018 [facility] DATE CREATED AUTHOR AUTHOR'S ORGANIZATIO N 04/04/2018 [facility] DATE CREATED AUTHOR AUTHOR'S ORGANIZATIO N 11/29/2018 [facility] DATE CREATED AUTHOR AUTHOR'S ORGANIZATIO N [facility] DATE CREATED AUTHOR AUTHOR'S ORGANIZATIO N 08/05/2019 [facility] [place]
--- OUTSIDE RECORDS SUMMARY | 2019-08-08 04:16 | XMS RPT_ITS | CCD ---
:1975 External Reference #:[id number] Demographics Preferred Language Unknown Marital Status Unknown Gnosticist Affiliation Unknown Race Unknown Ethnic Group Unknown Author Organization [facility] Care Team Providers Name Role Phone PULLUM, (CHIEF OF STAFF DOCTOR) Unavailable Unavailable Taylor, E. Unavailable Unavailable TRISTEN [...] asthma, Active 06-25-2019 - Dale Pom erene [facility] sarah (95100) Attention-deficit Attention-deficit Active 06-25-2019 - Dale Durham conduct and disruptive hyperactivity disorder, [facility] behavior disorders unspecified type (0000 0) Calculus of urinary Personal history of Active 06-25-2019 - J oel Pomerekasey tract urinary calculi [facility] (34982) Essential hypertension Essential (primary) Active 06-25-2019 - Dale Durham hypertension [facility] (36434) Fluid and electrolyte Hypokalemia Active 06-25-2019 - Dale P omerene disorders [facility] (00848) Other nervous system Paresthesia of skin Active 06-25-2019 - Dale Pomerene disorders 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 uncomplicated (72914) Unclassified Unknown / UNK(Unknown) Active 10-13-2017 - [facility] [place] (90878) Past or Other Problems Category Problem Name Status Date Location Other screening for Encounter for Completed 11-10-2018 - Dale huynh suspected conditions screening for [facility] (not mental disorders malignant neoplasm (39464) or infectious disease) of cervix Unclassified LEFT URETERAL STONE 10-13-2017 - [facility] [place] (88735) Results Result Name Value Range Unit Interpretation Flag Date Location operative procedures on 2019-08-06 OPERATIVE PROCEDURES [facility] Normal 1 [facility] OPERATIVE REPORT (00 000) NAME ACCOUNT SEX AGE ADMIT DISCHARGE PT MED. RECORD# NUMBER DATE DATE TYPE SUSI [id number] F 43 08/03/19 08/03/19 2 KYLAH Villegas [id number] ROOM: [facility] DATE OF : 1975 DICTATING PHYSICIAN: Mirella oLrenz DATE OF SURGERY: July 29, 2019 SURGEON: Mirella Lorenz MD ETL INFORMATICA DEVELOPER: BEHZAD Liu ANESTHESIOLOGIST: June Yoder CRNA ANESTHETIC: [...] Mirella Lorenz MD 08/03/19 10:36 JOB #: [id number] Transcribed By: barbara 08/03/19 20:39 Electronically signed by: E-Sign Dr. Mirella Lorenz MD 08/05/19 23:21 Page 2 of 2 KYLAH TUTTLE Operative Report cbc + diff on 08-04 Basophils (Bld) 0.10 0.00 - 0.10 x10EE3/UL Normal 08-04-2019 Олег [facility] [#/Vol] [facility] (98480) Comment: Performed By: #### [id number] ## ## [facility],[address] [place] [address] 35745 Basophils/100 WBC (Bld) 0.6 0.0 - 2.0 % Normal 2018 [facility] ( 14708) Comment: Performed By: #### [id number] ## ## [facility],[address] [place] [address] 53492 CBC + DIFF Normal 08-04-2019 [facility] (40175) Comment: Result Comment: CBC-COMPLETE BLOOD COUNT Performed By: #### [id number] ## ## [facility],[address] [place] [address] 10253 Eosinophils (Bld) 0.40 0.00 - 0.50 x10EE3/UL Normal 08-04-2019 [facility] [#/Vol] [facility] (33599) Comment: Performed By: #### [id number] ## ## [facility],[address] [place] [address] 10282 Eosinophils/100 WBC (Bld) 3.9 0.0 - 7.0 % Normal 07-11 [facility] ( 29971) Comment: Performed By: #### [id number] ## ## [facility],[address] [place] [address] 16072 Erythrocyte distribution 15.1 12.0 - 15.6 % Normal [facility] (RBC) [Ratio] Hospital (01472) Comment: Performed By: #### [id number] ## ## [facility],[address] [place] [address] 31073 Hematocrit (Bld) [Volume 44.6 34.0 - 46.0 % Normal [facility] ( 31792) Comment: Performed By: #### [id number] ## ## [facility],[address] [place] [address] 61916 Hemoglobin (Bld) 14.6 12.0 - 16.0 g/dl Normal 08-04-2019 [facility] [Mass/Vol] [facility] (69978) Comment: Performed By: #### [id number] ## ## [facility],[address] [place] [address] 70435 Lymphocytes (Bld) 2.70 0.80 - 2.80 x10EE3/UL Normal 08-04-2019 [facility] [#/Vol] [facility] ospital (92453) Comment: Performed By: #### [id number] ## ## [facility],[address] [place] [address] 82324 Lymphocytes/100 WBC (Bld) 25.9 20.0 - 45.0 % Normal [facility] ( 60670) Comment: Performed By: #### [id number] ## ## [facility],[address] [place] [address] 89793 MANUAL DIFF N/A Normal 08-04-2019 [facility] (71746) Comment: Performed By: #### [id number] ## ## [facility],[address] [place] [address] 35565 MCH (RBC) [Entitic mass] 30 27 - 33 pg Normal 08-04 [facility] ( 26845) Comment: Performed By: #### [id number] ## ## [facility],[address] [place] [address] 38486 MCHC (RBC) [Mass/Vol] 33 32 - 36 X10 3 Normal 08-04-20 19 [facility] ( 35498) Comment: Performed By: #### [id number] ## ## [facility],[address] [place] [address] 59037 MCV (RBC) [Entitic vol] 92 80 - 99 fl Normal 2018 [facility] ( 58767) Comment: Performed By: #### [id number] ## ## [facility],[address] [place] [address] 89340 Monocytes (Bld) 0.50 0.20 - 1.00 x10EE3/UL Normal 08-04-2019 Олег eleonora Riggins [#/Vol] [facility]ital (27530) Comment: Performed By: #### [id number] ## ## [facility],[address] [place] [address] 54558 MONOS % 5.2 0.0 - 10.0 % Normal 08-04-2019 [facility] (55623) Comment: Performed By: #### [id number] ## ## [facility],[address] [place] [address] 81302 Morphology Darian (Bld) [Interp] N/A Normal 08-04-2019 [facility] ( 52223) Comment: Performed By: #### [id number] ## ## [facility],[address] [place] [address] 46579 Neutrophils (Bld) 6.60 1.50 - 7.10 x10EE3/UL Normal 08-04-2019 [facility] [#/Vol] [facility] (61036) Comment: Performed By: #### [id number] ## ## [facility],[address] [place] [address] 89137 Neutrophils/100 WBC (Bld) 64.4 46.0 - 76.0 % Normal [facility] ( 24555) Comment: Performed By: #### [id number] ## ## [facility],[address] [place] [address] 31783 Platelet mean volume 9.2 6.6 - 10.5 fl Normal 08-04-20 [facility] (Bld) [Entitic vol] Hospital (74228) Comment: Result Comment: AUTOMATED DI FFERENTIAL Performed By: #### [id number] ## ## [facility],[address] [place] [address] 82763 Platelets (Bld) 268 150 - 450 x10EE3/UL Normal 08-04-2019 [facility] [#/Vol] [facility] (77870) Comment: Performed By: #### [id number] ## ## [facility],[address] [place] [address] 77914 RBC (Bld) [#/Vol] 4.84 4.10 - 5.30 x 10EE6/UL Normal 9 [facility] (74944) Comment: Performed By: #### [id number] ## ## [facility],[address] [place] [address] 07380 WBC (Bld) [#/Vol] 10.3 4.5 - 10.8 x 10EE3/UL Normal 08-04-2019 [facility] ( 90215) Comment: Performed By: #### [id number] ## ## [facility],[address] [place] [address] 67319 bmp with egfr on 28-07-26 Age - Reported 43 years Normal 08-04-2019 [facility] (54744) Comment: Performed By: #### [id number] ## ## [facility],[address] [place] [address] 31011 Anion gap [Moles/Vol] 12 10 - 20 mmol/L Normal 08-04-20 [facility] ( 30133) Comment: Performed By: #### [id number] ## ## [facility],[address] [place] [address] 91093 Calcium [Mass/Vol] 9.6 8.6 - 10.2 mg/dl Normal 08-04-2019 [facility] ( 86948) Comment: Performed By: #### [id number] ## ## [facility],[address] [place] [address] 21123 Chloride [Moles/Vol] 103 98 - 107 mmol/L Normal 9 [facility] ( 82923) Comment: Performed By: #### [id number] ## ## [facility],[address] [place] [address] 24536 CO2 [Moles/Vol] 26.5 21.0 - 31.0 mmol/L Normal 08-04-2019 [facility] ( 08572) Comment: Performed By: #### [id number] ## ## [facility],[address] [place] [address] 67087 Creatinine [Mass/Vol] 0.9 0.6 - 1.2 mg/dl Normal 08-04-20 19 [facility] ( 73340) Comment: Performed By: #### [id number] ## ## [facility],[address] [place] [address] 50808 GFR/1.73 sq M >60 60 - 999 mL/min/{1.73_m2} Normal 9 [facility] predicted among [facility] non-blacks MDRD (000 00) (S/P/Bld) [Vol rate/Area] [...] OF AGE AND OLDER. Performed By: #### [id number] ## ## [facility],[address] [place] [address] 33910 GFR/1.73 sq M predicted among Normal 08-04-2019 [facility] non-blacks MDRD (S/P/Bld) [Vol Hospital (58904) rate/Area] Comment: Result Comment: BASIC METABO LIC PANEL Performed By: #### [id number] ## ## [facility],[address] [place] [address] 26064 Glucose [Mass/Vol] 108 74 - 106 mg/dl High 08-04-2019 [facility] (88969) Comment: Performed By: #### [id number] ## ## [facility],[address] [place] [address] 78745 Potassium [Moles/Vol] 4.0 3.5 - 5.1 mmol/L Normal 08-04-20 [facility] ( 20074) Comment: Performed By: #### [id number] ## ## [facility],[address] [place] [address] 65319 Sodium [Moles/Vol] 137 136 - 145 mmol/l Normal 08-04-2019 [facility] ( 06811) Comment: Performed By: #### [id number] ## ## [facility],[address] [place] [address] 45970 Urea nitrogen [Mass/Vol] 13 6 - 20 mg/dl Normal 08-04 [facility] ( 37124) Comment: Performed By: #### [id number] ## ## [facility],[address] [place] [address] 60343 emergency report on 2019-07-14 EMERGENCY REPORT [facility] Normal 07-14 [facility] ospital EMERGENCY ROOM REPORT (21015) NAME ACCOUNT SEX AGE ADMIT DISCHARGE PT MED. RECORD# NUMBER DATE DATE TYPE KYLAH TUTTLE [id number] F 43 06/25/19 06/25/19 3 A [id number] ROOM: ER DATE OF : 1975 DICTATING [...] Reid Burnett DO 06/25/19 17:58 JOB #: [id number] Transcribed By: magdaleno 06/26/19 17:38 Electronically signed by: TAURUS Burnett D.O. 07/14/19 11:36 Page 2 of 2 KYLAH TUTTLE A Emergency Room Report cmp with egfr on 28-06-16 Age - Reported 43 years Normal 06-25-2019 [facility] (33397) Comment: Performed By: #### [id number] ## ## [facility] Hospi sarah,[address] [facility] 06325 Albumin [Mass/Vol] 4.3 3.4 - 4.8 g/dL Normal 06-25-2019 [facility] ( 90390) Comment: Performed By: #### [id number] ## ## [facility] Hos[facility] sarah,[address] [facility] 16950 Albumin/Globulin [Mass 1.3 0.9 - 1.6 {ratio} Normal 019 [facility]] [facility] (02824) Comment: Performed By: #### [id number] ## ## [facility] Hos[facility] sarah,[address] [facility] 68732 ALK PHOS 57 38 - 126 U/L Normal 06-25-2019 [facility] (23998) Comment: Performed By: #### [id number] ## ## [facility],[address] [facility] 97553 ALT/SGPT 17 8 - 35 U/L Normal 06-25-2019 [facility] (07567) Comment: Performed By: #### [id number] ## ## [facility],[address] [facility] 37015 Anion gap [Moles/Vol] 13 10 - 20 mmol/L Normal 06-25-20 19 [facility] ( 31621) Comment: Performed By: #### [id number] ## ## [facility],[address] [facility] [place] [address] AST/SGOT 15 13 - 39 U/L Normal 06-25-2019 [facility] (21173) Comment: Performed By: #### [id number] ## ## [facility],[address] [facility] 97679 B/C RATIO 12 0 - 30 ratio Normal 06-25-2019 [facility] (71741) Comment: Performed By: #### [id number] ## ## [facility],[address] [place] [address] [place] [address] Bilirubin [Mass/Vol] 0.4 0.0 - 1.5 mg/dl Normal 9 [facility] ( 35734) Comment: Performed By: #### [id number] ## ## [facility],[address] [place] [address] [place] [address] Calcium [Mass/Vol] 9.9 8.6 - 10.2 mg/dl Normal 06-25-2019 [facility] ( 72677) Comment: Performed By: #### [id number] ## ## [facility],[address] [place] [address] [place] [address] Chloride [Moles/Vol] 101 98 - 107 mmol/L Normal 9 [facility] ( 40859) Comment: Performed By: #### [id number] ## ## [facility],[address] [place] [address] [place] [address] CO2 [Moles/Vol] 26.1 21.0 - 31.0 mmol/L Normal 06-25-2019 [facility] ( 35049) Comment: Performed By: #### [id number] ## ## [facility],[address] [place] [address] [place] [address] Creatinine [Mass/Vol] 0.9 0.6 - 1.2 mg/dl Normal 06-25-20 19 [facility] ( 98552) Comment: Performed By: #### [id number] ## ## [facility],[address] [place] [address] [place] [address] GFR/1.73 sq M predicted among Normal 06-25-2019 [facility] non-blacks MDRD (S/P/Bld) [Vol Hospital (73760) rate/Area] Comment: Result Comment: COMPREHENSIV E METABOLIC PANEL Performed By: #### [id number] ## ## [facility],[address] [place] [address] 12296 GFR/1.73 sq M >60 60 - 999 mL/min/{1.73_m2} Normal 9 [facility] among [facility] non-blacks MDRD (000 00) (S/P/Bld) [Vol rate/Area] Comment: Performed By: #### [id number] ## ## [facility],[address] [place] [address] 46385 Result Comment: ACCORDING TO THE NATIONAL KIDNEY [...] 3.2 1.5 - 3.8 G/DL Normal 2018 [facility] ( 33290) Comment: Performed By: #### [id number] ## ## [address] [address] Glucose [Mass/Vol] 173 74 - 106 mg/dl High 06-25-2019 [facility] (89112) Comment: Performed By: #### [id number] ## ## [facility],[address] [place] [address] 29335 Potassium [Moles/Vol] 3.2 3.5 - 5.1 mmol/L Low 06-25-20 19 [facility] ( 26275) Comment: Performed By: #### [id number] ## ## [address] [address] Protein [Mass/Vol] 7.5 6.4 - 8.3 g/dl Normal 06-25-2019 [facility] ( 43219) Comment: Performed By: #### [id number] ## ## [facility],[address] [place] [address] 18868 Sodium [Moles/Vol] 137 136 - 145 mmol/l Normal 06-25-2019 [facility] ( 92233) Comment: Performed By: #### [id number] ## ## [facility] Hos[facility] sarah,[address] [place] [address] 10131 Urea nitrogen [Mass/Vol] 11 6 - 20 mg/dl Normal 06-25 [facility] ( 98337) Comment: Performed By: #### [id number] ## ## [facility],[address] [place] [address] 25869 chest 2 views on 28-06-16 CHEST [address] [facility] Normal 06-25-20 [facility] ospital [address] [place] [address] (40063) Patient: KYLAH TUTTLE Phone#: : 1975 Age: 43 Gender: F Pt. Type: ER Account: [id number] Location: [facility] Ordering: REID BURNETT Exam Date: 06/25/2019/15:06 Family Phys: JANNIE EDWARDS Charge Code: 447020 Physician: Canyon Order #: [id number] DLP Dose#: PROCEDURE: X-RAY CHEST 2 VIEWS COMPARISON: [facility], XR, CHEST AP, 06/28/2017, 11:4 4. [...] 0.00 - 0.10 x10EE3/UL Normal 06-25-2019 Олег [facility] [#/Vol] [facility] (92917) Comment: Performed By: #### [id number] ## ## [facility],[address] [place] [address] 96156 Basophils/100 WBC (Bld) 1.2 0.0 - 2.0 % Normal 2018 [facility] ( 34691) Comment: Performed By: #### [id number] ## ## [facility],[address] [place] [address] 59936 CBC + DIFF Normal 06-25-2019 [facility] (57268) Comment: Result Comment: CBC-COMPLETE BLOOD COUNT Performed By: #### [id number] ## ## [facility],[address] [place] [address] 85406 Eosinophils (Bld) 0.10 0.00 - 0.50 x10EE3/UL Normal 06-25-2019 [facility] [#/Vol] [facility] (95682) Comment: Performed By: #### [id number] ## ## [facility],[address] [place] [address] 37360 Eosinophils/100 WBC (Bld) 1.2 0.0 - 7.0 % Normal 06-10 [facility] ( 16023) Comment: Performed By: #### [id number] ## ## [facility],[address] [place] [address] 74753 Erythrocyte distribution 14.5 12.0 - 15.6 % Normal [facility] (RBC) [Ratio] [facility] (76208) Comment: Performed By: #### [id number] ## ## [facility],[address] [place] [address] 40223 Hematocrit (Bld) [Volume 44.8 34.0 - 46.0 % Normal [facility] ( 91976) Comment: Performed By: #### [id number] ## ## [facility],[address] [place] [address] 54514 Hemoglobin (Bld) 15.5 12.0 - 16.0 g/dl Normal 06-25-2019 [facility] [Mass/Vol] [facility] (33730) Comment: Performed By: #### [id number] ## ## [facility],[address] [place] [address] 68129 Lymphocytes (Bld) 2.40 0.80 - 2.80 x10EE3/UL Normal 06-25-2019 [facility] [#/Vol] [facility] ospital (18851) Comment: Performed By: #### [id number] ## ## [facility],[address] [place] [address] 27112 Lymphocytes/100 WBC (Bld) 28.6 20.0 - 45.0 % Normal [facility] ( 43036) Comment: Performed By: #### [id number] ## ## [facility],[address] [place] [address] 79029 MANUAL DIFF N/A Normal 06-25-2019 [facility] (45814) Comment: Performed By: #### [id number] ## ## [facility],[address] [place] [address] 76142 MCH (RBC) [Entitic mass] 31 27 - 33 pg Normal 06-25 [facility] ( 40431) Comment: Performed By: #### [id number] ## ## [facility],[address] [place] [address] 90245 MCHC (RBC) [Mass/Vol] 35 32 - 36 X10 3 Normal 06-25-20 19 [facility] ( 38599) Comment: Performed By: #### [id number] ## ## [facility],[address] [place] [address] 13262 MCV (RBC) [Entitic vol] 91 80 - 99 fl Normal 2018 [facility] ( 91807) Comment: Performed By: #### [id number] ## ## [facility],[address] [place] [address] 71270 Monocytes (Bld) 0.30 0.20 - 1.00 x10EE3/UL Normal 06-25-2019 Олег croft Riggins [#/Vol] [facility] (63195) Comment: Performed By: #### [id number] ## ## [facility],[address] [place] [address] 19187 MONOS % 3.2 0.0 - 10.0 % Normal 06-25-2019 [facility] (22678) Comment: Performed By: #### [id number] ## ## [facility],[address] [place] [address] 39895 Morphology Darian (Bld) [Interp] N/A Normal 06-25-2019 [facility] ( 85549) Comment: Performed By: #### [id number] ## ## [facility],[address] [place] [address] 36365 Neutrophils (Bld) 5.50 1.50 - 7.10 x10EE3/UL Normal 06-25-2019 [facility] [#/Vol] [facility] (69954) Comment: Performed By: #### [id number] ## ## [facility],[address] [place] [address] 71722 Neutrophils/100 WBC (Bld) 65.8 46.0 - 76.0 % Normal [facility] ( 85602) Comment: Performed By: #### [id number] ## ## [facility],[address] [place] [address] 31490 Platelet mean volume 8.9 6.6 - 10.5 fl Normal 06-25-20 19 [facility] (Bld) [Entitic vol] [facility] (49808) Comment: Result Comment: AUTOMATED DI FFERENTIAL Performed By: #### [id number] ## ## [facility],[address] [place] [address] 60008 Platelets (Bld) 305 150 - 450 x10EE3/UL Normal 06-25-2019 [facility] [#/Vol] [facility] (36703) Comment: Performed By: #### [id number] ## ## [facility],[address] [place] [address] 71124 RBC (Bld) [#/Vol] 4.93 4.10 - 5.30 x 10EE6/UL Normal 9 [facility] (38139) Comment: Performed By: #### [id number] ## ## [facility],[address] [place] [address] 24980 WBC (Bld) [#/Vol] 8.4 4.5 - 10.8 x 10EE3/UL Normal 06-25-2019 [facility] ( 84980) Comment: Performed By: #### [id number] ## ## [facility],[address] [place] [address] 92867 emergency report on 2019-05-10 EMERGENCY REPORT [facility] Normal 05-10 [facility] EMERGENCY ROOM REPORT ([id number]) NAME ACCOUNT SEX AGE ADMIT DISCHARGE PT MED. RECORD# NUMBER DATE DATE TYPE KYLAH TUTTLE [id number] F 43 05/09/19 05/09/19 3 A [id number] ROOM: ER DATE OF : 1975 DICTATING [...] Qamar Faust MD 05/09/19 12:08 JOB #: [id number] Transcribed By: barbara 05/09/19 21:01 Electronically signed by: TAURUS Faust M.D. 05/10/19 16:44 Page 1 of 2 KYLAH TUTTLE Emergency Room Report Page 2 of 2 KYLAH TUTTLE Emergency Room Report nicotine and metabolite, urine on 2019-04-06 3-OH COTININE, UR 104 () ng/mL Normal 04-06-2019 [facility] (11240) Comment: Result Comment: Nicotine is metabolized to cotinine, and 0-UX-vxowotir is a metabolite of cotinine. Afte r cessation from long-term or heavy use of nicotine produc ts, 2-LT-fpjogsso may persist for weeks. Performed By: #### NICOTINEU R ####[facility] [id number] [place], [place] [phone] ANABASINE, UR < 3 () Normal 04-06-2019 [facility] (80365) Comment: Performed By: #### NICOTINEU R ####[facility] [id number] [place], [place] [phone] COTININE, UR 41 () ng/mL Normal 04-06-2019 [facility] (01823) Comment: Result Comment: Cotinine is the major metabolite of nicotine and has a half-life of approximately 1 6 hours. Performed By: #### NICOTINEU R ####[facility] [id number] [place], [place] [phone] NICOTINE, UR 11 () ng/mL Normal 04-06-2019 [facility] (11516) Comment: Result Comment: Consistent w ith use of a nicotine-containing product within 1 week of specimen collectio n. INTERPRETIVE INFORMATION: Ni cotine and Metabolites, Urine, Quantitative Methodology: Quantitative Li quid Chromatography-Tandem Mass Spectrometry Positive cutoff: Nicotine 2 ng/mL Cotinine 5 ng/mL 7-YK-Peyitkyo 50 ng/mL Nornicotine 2 ng/mL Anabasine 3 [...] Test developed and character istics determined by [facility]. See Compliance Statement B: creads/ Performed by [facility] , [address], [place] [address] [email or web address], Abdi Miramontes do, MD, Lab. Director Performed By: #### NICOTINEU R ####[facility], [place] [phone] NORNICOTINE, UR < 2 () Normal 04-06-2019 [facility] (64602) Comment: Performed By: #### NICOTINEU R ####[facility] [place], [place] [phone] urine culture on 28-03-25 Bacteria Normal 04-03-2019 [facility] identified RUN DATE: 04/05/19 Laboratory LIVE PAGE 1 [facility] Cx Nom (U) RUN TIME: 1151 Specimen Inquiry [place] RUN USER: INTERFACE ([id number]) [facility] Department of Laboratories [address] [place] [address] PATIENT: KYLAH TUTTLE LOC: [facility] U # : [id number] HOME PHONE: AGE/SX: 43/F ROOM: RE04/16/[address] [facility] [address]: Amando Riley MD : 79 BED: DIS: STATUS: PRE IN LAB O/S: Specimen: [id number] Collected: 04/03/19-UNK Status: CO RAISSA Req#: [id number] Received: 04/03/19 Source: [facility] Villalpando Desc: Subm Dr: Zeeshan Ruiz MD Ordered: URINE CULTURE Procedure Result Verified > URINE CULTURE Final 04/05/19-1151 COLONY COUNT > 10,000 BUT < 100,000 COLONIES/ML MODERATE GRAM POSITIVE RODS (TWO TYPES) MODERATE GRAM POSITIVE COCCI (TWO TYPES) COMMENT: PROBABLE URETHRAL CONTAMINATION NO SENSITIVITY PERFORMED END OF REPORT Comment: Performed By: #### CULTUR ## ##[address] [address] urinalysis (no microscopic) on 2019-04-03 Appearance (U) CLEAR CLEAR Normal 04-03-2019 [facility] (52552) Comment: Order Comment: Comment: PRE OP Performed By: #### URDIP ### [address] [address] Color (U) STRAW YELLOW Abnormal 04-03-2019 [facility] (89591) Comment: Order Comment: Comment: PRE OP Performed By: #### URDIP ### [address] [address] Glucose Ql (U) NEG NEG Normal 04-03-2019 [facility] (38618) Comment: Order Comment: Comment: PRE OP Performed By: #### URDIP ### [address] [address] Nitrite Ql (U) NEG NEG Normal 04-03-2019 [facility] (66220) Comment: Order Comment: Comment: PRE OP Performed By: #### URDIP ### [address] [address] pH (U) 5.0 4.6-8.0 [pH] Normal 04-03-2019 [facility] (09108) Comment: Order Comment: Comment: PRE OP Performed By: #### URDIP ### [address] [address] Protein Ql (U) NEG NEG Normal 04-03-2019 [facility] (02647) Comment: Order Comment: Comment: PRE OP Performed By: #### URDIP ### [address] [address] Specific gravity (U) 1.011 1.002-1.[address] [place] [address] [[facility]] [facility] (33440) Comment: Order Comment: Comment: PRE OP Performed By: #### URDIP ### [address] [address] URINE ASCORBIC ACID NEG NEG Normal 04-03-2019 [facility] (37792) Comment: Order Comment: Comment: PRE OP Performed By: #### URDIP ### [address] [address] URINE BILE NEG NEG Normal 04-03-2019 [facility] (68088) Comment: Order Comment: Comment: PRE OP Performed By: #### URDIP ### [address] [address] URINE HEMOGLOBIN NEG NEG Normal 04-03-2019 [facility] (26360) Comment: Order Comment: Comment: PRE OP Performed By: #### URDIP ### [address] [address] URINE KETONE NEG NEG Normal 04-03-2019 [facility] (97361) Comment: Order Comment: Comment: PRE OP Performed By: #### URDIP ### [address] [address] URINE LEUKOCYTES NEG NEG Normal 04-03-2019 [facility] (45751) Comment: Order Comment: Comment: PRE OP Performed By: #### URDIP ### [address] [address] Urobilinogen Qn (U) NEG <2.0 Normal 04-03-2019 [facility] (93394) Comment: Order Comment: Comment: PRE OP Performed By: #### URDIP ### #[place] [address] type and screen on 2019-04-03 TYPE AND SCREEN BLOOD TYPE Normal 04-03-[address] [facility] [place] [facility] (73362) ANTIBODY SCREEN NEGATIVE Comment: Performed By: #### TS ####TW [address] [address] ptinr on 2019-04-03 INR Coag (PPP) [Relative 0.9 {INR} Normal 04-03 [facility] time] [facility] (71222) Comment: Result Comment: INR IS TO BE USED ONLY FOR PATIENTS ON STABLE ORAL ANTICOAGULANT THERAPY STANDARD THERAPY INR 2.0-3.0 HIGHER THERAPY INR 2.5-3.5 (CHEST, VOL. 108(4,SUPPL.) :231S-246S, 1994) Performed By: #### PTINR, AP TT #### TWL [address] [address] PT Coag (PPP) [Time] 9.6 9.9-11.6 SEC Low 9 [facility] [place] [facility] (78965) Comment: Performed By: #### PTINR, TIA TT #### TWL [facility] [address] [place] [address] ekgi on 2019-04-03 EKGI [facility] Normal 04-03 [facility] (75048) [address] [place] [address] EKG Report KYLAH TUTTLE [id number] PRE IN [phone] Zeeshan Ruiz MD SINUS RHYTHM INCOMPLETE RIGHT BUNDLE BRANCH BLOCK RIGHT VENTRICULAR HYPERTROPH POSSIBLE ANTERIOR MYOCARDIAL INFARCTION, OF INDETERM INATE AGE ABNORMAL ECG Electronically signed by Darin FAULKNER Apr 03 201 9 11:44AM cxr on 2019-04-03 CXR Name: KYLAH TUTTLE Normal 04-03-20 19 [facility] Phys: Zeeshan Ruiz MD [place] ([id number]) : 1975 Age: 43 Sex: F Acct: [id number] Loc: [facility] Exam Date: 04/03/2019 Status: PRE IN Radiology No: Unit No: [id number] PH: [phone] Diagnosis: MORBID OBESITY EXAM: [id number] CHEST-STANDARD FRONTAL LAT Reason For Procedure: PRE [...] Technologist: LUCIEN SANDY, RT/R/M/CT Transcribed Date/Time: 04/03/2019 (114) Trichologist: LYDIA Printed Date/Time: 04/03/2019 (5047) PAGE 1 Signed Report comprehensive metabolic on 2019-04-03 ADJUSTED CALCIUM 9.5 MG/DL Normal 04-03-2019 [facility] (19666) Comment: Performed By: #### PROF #### TWL [address] [address] Albumin [Mass/Vol] 3.4 3.4-5.0 GM/DL Normal 04-03-2019 [facility] (05537) Comment: Performed By: #### PROF #### TWL [address] [address] Albumin/Globulin [Mass 1.0 1.1-1.8 {ratio} Low 019 [facility] ratio] [facility] (30974) Comment: Performed By: #### PROF #### TWL [address] [address] ALP [Catalytic 75 45-117 U/L Normal 04-03-2019 [facility] activity/Vol] [facility] (90088) Comment: Performed By: #### PROF #### TWL [address] [address] ALT [Catalytic activity/Vol] 32 13-61 U/L Normal 0 04-03-2019 [facility] (15189) Comment: Result Comment: Falsely depr essed or falsely elevated results may occur on samples drawn from patients taking Sulfasalazine and Sulfapyridine. Performed By: #### PROF #### TWL [address] [address] Anion gap [Moles/Vol] 10.1 0-16 mmol/L Normal 04-03-20 [facility] (83636[facility] Comment: Performed By: #### PROF #### TWL [address] [address] AST [Catalytic activity/Vol] 22 15-37 U/L Normal 0 04-03-2019 [facility] (40028[facility] Comment: Result Comment: Falsely depr essed or falsely elevated results may occur on samples drawn from patients taking Sulfasalazine and Sulfapyridine. Performed By: #### PROF #### TWL [address] [address] Bilirubin Ql (U) 0.40 0.0-1.0 MG/DL Normal 04-03-2019 [facility] [place] (91551) Comment: Performed By: #### PROF #### TWL [address] [address] Calcium [Mass/Vol] 9.0 8.5-10.1 MG/DL Normal 04-03-2019 [facility] (20082) Comment: Performed By: #### PROF #### TWL [address] [address] Chloride [Moles/Vol] 105 98-107 MMOL/L Normal 9 [facility] [place] (82247) Comment: Performed By: #### PROF #### TWL [address] [address] Creatinine [Mass/Vol] 0.90 0.55-1.02 MG/DL Normal 04-03-20 19 [facility] [place] (94456) Comment: Performed By: #### PROF #### TWL [address] [address] GFR/1.73 sq M > 60 >60 mL/min/{1.73_m2} Normal 9 [facility] predicted among [facility] (49904) blacks MDRD (S/P/Bld) [Vol rate/Area] Comment: Performed By: #### PROF #### TWL [address] [address] GFR/1.73 sq M > 60 >60 mL/min/{1.73_m2} Normal 9 [facility] predicted among [facility] (89779) non-blacks MDRD (S/P/Bld) [Vol rate/Area] Comment: Result Comment: Average GFR for 40-49 years old = 99 ml/min/1.73 sq.m Chronic Kidney Disease - GFR generally <60 ml/min/1.73 sq.m Kidney Failure - GFR general ly <15 ml/min/1.73 sq.m Performed By: #### PROF #### TWL [address] [address] Glucose [Mass/Vol] 98 70-110 MG/DL Normal 04-03-2019 [facility] [place] (64688) Comment: Result Comment: Falsely depr essed or [...] . Performed By: #### PROF #### TWL [address] [address] Potassium [Moles/Vol] 4.1 3.5-5.1 MMOL/L Normal 04-03-20 19 [facility] (45229) Comment: Performed By: #### PROF #### TWL [address] [address] Protein [Mass/Vol] 6.9 6.4-8.2 GM/DL Normal 04-03-2019 [facility] [place] (66848) Comment: Performed By: #### PROF #### TWL [address] [address] Sodium [Moles/Vol] 135 136-145 MMOL/L Low 04-03-2019 [facility] [place] (41947) Comment: Performed By: #### PROF #### TWL [address] [address] TOTAL CO2 24 21-32 MMOL/L Normal 04-03-2019 [facility] (93497) Comment: Result Comment: TCO2 test me asures total amount of CO2 in the blood, which occurs mostly in the form of bicarbonate (HCO3). Performed By: #### PROF #### TWL [address] [address] Urea nitrogen [Mass/Vol] 10 7-18 MG/DL Normal 04-03 [facility] (20460) Comment: Performed By: #### PROF #### TWL [address] [address] Urea nitrogen/Creatinine 11.1 0-30 mg/mg Normal 04-03 [facility] [Mass ratio] [facility] (19557) Comment: Performed By: #### PROF #### TWL [address] [address] cbc auto diff (reflex manual) on 2019-04-03 Basophils (Bld) [#/Vol] 0.00 0.0-0.2 x10 3 Normal 2018 [facility] (56723) Comment: Performed By: #### CBCAD ### # TWL [address] [address] Basophils/100 WBC (Bld) 0.5 0.0-1.5 % Normal 2018 [facility] (60122[facility] Comment: Performed By: #### CBCAD ### # TWL [address] [address] EOSINOPHIL % 2.1 0.0-10.0 % Normal 04-03-2019 [facility] (75254) Comment: Performed By: #### CBCAD ### # TWL [address] [address] Lymphocytes (Bld) 1.80 1.0-4.8 x10 3 Normal 04-03-2019 [facility] [#/Vol] [place] (88878) Comment: Performed By: #### CBCAD ### # TWL [address] [address] Lymphocytes/100 WBC (Bld) 23.5 13.0-47.0 % Normal - [facility] [place] (65564) Comment: Performed By: #### CBCAD ### # TWL [address] [address] MCV (RBC) [Entitic vol] 92.7 78-102 fl Normal 2018 [facility] [place] (94082) Comment: Performed By: #### CBCAD ### # TWL [address] [address] MEAN ROBBIE HGB CONC 32.9 31.0-37.0 g/dl Normal 04-03-2019 [facility] [place] (07427) Comment: Performed By: #### CBCAD ### # TWL [address] [address] MEAN CORPUSCULAR HGB 30.5 26.0-34.0 pg Normal 9 [facility] [place] (58048) Comment: Performed By: #### CBCAD ### # TWL [address] [address] Monocytes (Bld) [#/Vol] 0.60 0.0-1.0 x10 3 Normal 2018 [facility] [place] (74292) Comment: Performed By: #### CBCAD ### # TWL [address] [address] Monocytes/100 WBC (Bld) 7.7 0.0-10.0 % Normal 2018 [facility] [place] (86932) Comment: Performed By: #### CBCAD ### # TWL [address] [address] Neutrophils (Bld) 5.10 1.8-7.7 x10 3 Normal 04-03-2019 [facility] [#/Vol] [place] (14303) Comment: Performed By: #### CBCAD ### # TWL [address] [place] [address] Neutrophils/100 WBC (Bld) 66.2 40.0-80.0 % Normal 03-11 [facility] [place] (79156) Comment: Performed By: #### CBCAD ### # TWL [address] [address] Platelet mean volume 9.8 7.5-10.7 fl Normal 9 [facility] (Bld) [Entitic vol] [place] ([address]87) Comment: Performed By: #### CBCAD ### # TWL [address] [address] Platelets (Bld) [#/Vol] 237 150-350 x10 3 Normal 2018 [facility] (29675) Comment: Performed By: #### CBCAD ### # TWL [address] [address] RBC (Bld) [#/Vol] 4.70 4.00-5.20 x10 6 Normal 04-03-2019 [facility] [place] (68058) Comment: Performed By: #### CBCAD ### # TWL [address] [address] RED CELL WIDTH 14.5 11.5-14.5 % Normal 04-03-2019 [facility] (70325) Comment: Performed By: #### CBCAD ### # TWL [address] [address] TOTAL EO 0.20 0-1.0 x10 3 Normal 04-03-2019 [facility] (95366) Comment: Performed By: #### CBCAD ### # TWL [address] [address] WBC (Bld) [#/Vol] 7.7 4.5-11.0 x10 3 Normal 04-03-2019 [facility] (40679[facility] Comment: Performed By: #### CBCAD ### # TWL [address] [address] act par thrombo time on 2019-04-03 ACT PAR THROMBO TIME 23 22-33 SEC Normal 9 [facility] (34785) Comment: Result Comment: THERAPEUTIC APTT RANGE: 41-61 SECONDS NEW THERAPEUTIC RANGE EFFECT KIMBERLYN 11/29/2018 Performed By: #### PTINRTIA TT #### TWL [address] [address] surgical pathology on 2019-01-18 SURGICAL Normal 01-18-2019 [place] [facility] RUN DATE: 01/19/19 Laboratory LIVE PAGE 1 [facility] RUN TIME: 1359 Specimen Inquiry [place] RUN USER: INTERFACE (00037) [facility] Department of Laboratories [address] [place], [place] [address] PATIENT: KYLAH TUTTLE LOC: [facility] U #: [id number] HOME PHONE: AGE/SX: 43/F ROOM: RE01/18/[address]: Juancho Elder MD : 79 BED: DIS: STATUS: REG [facility] LAB O/S: Specimen : [id number] Date Collected: 01/18/19 Surgeon : Juancho Elder [...] Comment: Performed By: #### S #### [place] [address] en2i on 2019-01-18 EN2I [facility] Normal 01-19-20 [place] [address] [id number] [facility] KYLAH TUTTLE [facility] DR: Juancho Elder MD ([id number]) ATT DR: Juancho Elder MD MR [id number] ENDOSCOPY RECORD #2 ADMIT DATE: ======== ESOPHAGOGASTRODUODENOSCOPY REPORT PATIENT NAME: Kylah Tuttle : 1975 SEX: F EXAM DATE: 01-18-2019 ATTENDING PHY:Juancho Elder M.D. REFERRAL: ACCOUNT NO: [id number] TIME Start:12:09 PM End: 12:12 PM INDICATION : Heartburn - R12 candidate for SLEEVE CONSENT : Informed consent was obtained from the patient aft er providing any opportunity for questions. PREPARATION : EKG pulse, blood pressure and oxygen saturatio n monitored. INSTRUMENT : GIF H180 #[id number] ANESTHESIA : As Per Anesthesia EBL : [...] head of bed 8 inches all time [place], [place] [address] [id number] [address] DR: Juancho Elder MD ATT DR: Juancho Elder MD MR [id number] ENDOSCOPY RECORD #2 ADMIT DATE: ======== Avoid: citrus juices, cigarettes, chocolate, tight fitting clothing, coffee and other caffeinated beverages, carbonated beverages, fatty and fried foods, anticholinergic medications, medications which decrease LES tone (Ca channel blockers, theophyline perparations). regular diet Low fat diet omeprozole 20 mg q day CPT CODES : 33837 - EGD with biopsy, single or multiple Report Signed Electronically in MD Reports by Attending Louis mac. Electronic Signature: ' Date: 01/18/2019 12:22:06 PM' Juancho Elder M.D. Page 1 of 1 IOE ,MD Juancho Elder MD Report Signed Electronically in MD Reports cc: ENDOSCOPY RECORD pft on 2018-12-28 PFT [facility] Normal 12-29-19 [facility] CARDIOPULMONARY SERVICES System [place], [place] [address] (87577) PULMONARY FUNCTION REPORT Patient : KYLAH TUTTLE Status : REG REF Age : 43 Room/Bed : : 77 Acct. Number : [id number] Sex : F M.R. Number : [id number] Ordering Phys : Amando Riley MD Admitting [...] radiology data. KYLAH TUTTLE - /FN/b DOC#: [id number]/JOB#: [id number] [facility] CARDIOPULMONARY SERVICES [place], [place] [address] PULMONARY FUNCTION REPORT Patient : KYLAH TUTTLE Status : REG REF Age : 43 Room/Bed : : 77 Acct. Number : [id number] Sex : F M.R. Number : [id number] Ordering Phys : Amando Riley MD Admitting Dx : SURGERY CLEARANCE Date of Study : 12/28/18 D..... 12/28/18 1548 M.D. T..... 12/28/18 1551 FN Sebastien May MD Signed Electronically 12/30/18 1102 cc: cxr on 2018-12-28 CXR Name: KYLAH TUTTLE 12-28-2018 [facility] Phys: Amando Riley MD [place] ([id number]) : 1975 Age: 43 Sex: F Acct: [id number] Loc: [facility] Exam Date: 12/28/2018 Status: REG REF Radiology No: Unit No: [id number] PH: [phone] Diagnosis: SURGERY CLEARANCE EXAM: [id number] CHEST-STANDARD FRONTAL LAT Reason For Procedure: MORBID [...] PEGGY SY, RT/R Transcribed Date/Time: 12/28/2018 (1455) Trichologist: LYDIA Printed Date/Time: 12/28/2018 (3990) PAGE 1 Signed Report 25-hydroxy d2+d3 on 2018-11-27 25-Hydroxy D Total 17.4 30.0-100.0 ng/mL Low 11-27-2018 [facility] (71275 ) Comment: Performed By: #### HBA1C ### # [facility] Routine Lab [address] [place], [place] [address] #### D2D3 #### [facility] Chemistry [address] [place], [place] [address] 25-Hydroxy D2 <4.0 Normal 11-27-2018 [facility] (92133) Comment: Performed By: #### HBA1C ### # [facility] Routine Lab [address] [place], [place] [address] #### D2D3 #### [facility] Chemistry [address] [place], [place] [id number] 25-Hydroxy D3 17.4 ng/mL Normal 11-27-2018 [facility] (05774) Comment: Performed By: #### HBA1C ### # [facility] Routine Lab [address] [place], [place] [address] #### D2D3 #### [facility] Chemistry [address] [place], [place] [address] 25-hydroxy d2+d3 [ccl] on 2018-11-27 25-HYDROXY D2+D3 [CCL] Normal 019 [facility] (69140) Comment: Result Comment: _25-HYDROXY D2+D3 [CCL]_ 25-HYDROXY [...] determined by the Pathology and Laboratory Medicine [place] at the [facility]. The U.S. F ood and Drug Administration has not approved or cleared this elba t, however, FDA clearance or approval is not currently required for c linical use. [facility] [address] [place] [address] Lori Estrada M.D. [id number] Performed By: #### [id number] ## ## [facility],[address] [place], [place] [address] vitamin a [ccl] on 2018-11-25 VITAMIN A [CCL] Normal 11-25-2018 [facility] (10159) Comment: Result Comment: _VITAMIN A [ CCL]_ VITAMIN A [CCL] Reported: 11/24/2018 15:13 S tatus=F TEST RESULT FLAG RANGE UNITS Vitamin A 0.51 0.30-1.20 mg/ L 11/24/18.1516.rfl.COMPLETE.ATLR This test was developed and its performance characteristics determined by [facility]'s [facility] [place] ([facility]). It has not been cleared or a pproved by the FDA. [facility] is regulated under CLIA as qualified to perform high -complexity testing. This test is used for clinic al purposes. It should not be regarded as investigational or for [facility]. [facility] [address] [place] [address] Lori Estrada M.D. [id number] Performed By: #### 629285 ## ## [facility],[address] [place], [place] [address] vitamin a on 11-24 Vitamin A 0.51 0.30-1.20 mg/L Normal 11-24-2018 [facility] (77205) Comment: Performed By: #### PAT #### [facility] Chemistry [facility] [place] [id number] hgb a1c [ccl] on 28-11-13 HbA1c (Bld) [Mass fraction] Normal [facility] (08160) Comment: Result Comment: _HEMOGLOBIN A1C_ HGB A1C [CCL] Reported: 11/23/2018 09:13 S tatus=F TEST RESULT FLAG RANGE UNITS Hemoglobin A1c 5.8 H 4.3-5.6 % 11/23/18.0916.rfl.COMPLETE.ATLR [place] [employer] n guidelines indicate that patients with HgbA1c in the range 5.7-6.4% are at in creased risk for development of diabetes, and intervention by lifestyle mo dification may be beneficial. HgbA1c greater or equal to 6.5% is considered diagnostic of diabetes. Est. Average Glucose 120 mg/ dL 11/23/18.0916.rfl.COMPLETE.ATLR eAG: (Estimated average gluc ose) is a calculated value from HgbA1c and is artist representative of the averag e blood glucose level in the last 2-3 month period. [facility] [address] [place] [address] Lori Estrada M.D. [id number] Performed By: #### [id number] ## ## [facility],[address] [place], [place] [address] hemoglobin a1c on Hemoglobin A1c/Hemoglobin.total 5.8 4.3-5.6 % High 11-23-2018 [facility] mass fraction (Bld) Reference Lab (65368) Comment: Performed By: #### HBA1C ### # [facility] Routine Lab [address] [place] [address] #### D2D3 #### [facility] Chemistry [address] [place] [address] Hemoglobin A1c/Hemoglobin.total 120 mg/dL Normal 11-23-2018 [facility] mass fraction (Bld) Reference Lab (46449) Comment: Performed By: #### HBA1C ### # [facility] Routine Lab [address] [place] [address] #### D2D3 #### [facility] Chemistry [address] [place] [phone] vitamin b-12 on 06-11-13 Cobalamin (Vitamin B12) 480 180 - 914 pg/mL Normal 2018 [facility] [[facility]] [facility] (00295) Comment: Performed By: #### [id number] ## ## [facility] Hospi sarah,[address] [place] [address] tsh on 2018-11-22 TSH Qn 3.59 0.34 - 5.60 uIU/ml Normal 11-22-2018 [facility] (49731) Comment: Performed By: #### [id number] ## ## [facility],[address] [place] [address] lipase on 2018-11-10 3 Lipase [Catalytic 6.0 18.0 - 51.0 U/L Low 11-22-2018 [facility] activity/Vol] Hospit al (76300) Comment: Performed By: #### [id number] ## ## [facility],[address] [place] [address] iron and uibc on 28-11-12 Iron [Mass/Vol] 65 50 - 170 ug/dl Normal 11-22-2018 [facility] (87973) Comment: Performed By: #### [id number] ## ## [facility],[address] [place] [address] Sat% 19 20 - 50 % Low 11-22-2018 [facility] (42763) Comment: Performed By: #### [id number] ## ## [facility],[address] [facility] [address] TIBC 338 250 - 450 ug/dl Normal 11-22-2018 [facility] (68774) Comment: Performed By: #### 899120 ## ## [facility],[address] [place] [address] UIBC 273 155 - 355 ug/dL Normal 11-22-2018 [facility] (64537) Comment: Performed By: #### 235702 ## ## [facility],[address] [facility] [address] folates on FOLATES 16.6 3.5 - 20.0 ng/ml Normal 11-22-2018 [facility] (88261) Comment: Performed By: #### 979514 ## ## [facility],[address] [facility] [address] ferritin on 2018-11 Ferritin [Mass/Vol] 150 10 - 291 ng/mL Normal 11-22-2018 [facility] ( 81234) Comment: Performed By: #### 620954 ## ## [facility],[address] [facility] [address] cmp with egfr on 28-11-12 Age - Reported 42 years Normal 11-22-2018 [facility] (47118) Comment: Performed By: #### 534405 ## ## [facility],[address] [facility] [address] Albumin [Mass/Vol] 4.0 3.4 - 4.8 g/dL Normal 11-22-2018 [facility] ( 55122) Comment: Performed By: #### 340235 ## ## [facility],[address] [facility] [address] Albumin/Globulin [Mass 1.4 0.9 - 1.6 {ratio} Normal [address] [place] [address] ([address]) Comment: Performed By: #### 098923 ## ## [facility],[address] [facility] [address] ALK PHOS 60 38 - 126 U/L Normal 11-22-2018 [facility] (91330) Comment: Performed By: #### [id number] ## ## [facility] [facility] [address] ALT/SGPT 15 8 - 35 U/L Normal 11-22-2018 [facility] (30697) Comment: Performed By: #### 620028 ## ## [facility] [facility] [address] Anion gap [Moles/Vol] 12 10 - 20 mmol/L Normal 11-22-19 [facility] ( 29137) Comment: Performed By: #### [id number] ## ## [facility] Hos[facility] sarah,1 [facility] 98304 AST/SGOT 15 13 - 39 U/L Normal 11-22-2018 [facility] (11533) Comment: Performed By: #### [id number] ## ## [facility],[address] [place] [address] 16813 B/C RATIO 12 0 - 30 ratio Normal 11-22-2018 [facility] (56111) Comment: Performed By: #### [id number] ## ## [facility],[address] [place] [address] 79079 Bilirubin [Mass/Vol] 0.5 0.0 - 1.5 mg/dl Normal 9 [facility] ( 54068) Comment: Performed By: #### [id number] ## ## [facility],[address] [place] [address] [place] [address] Calcium [Mass/Vol] 9.6 8.6 - 10.2 mg/dl Normal 11-22-2018 [facility] ( 86597) Comment: Performed By: #### [id number] ## ## [facility],1 [facility] [place] [address] Chloride [Moles/Vol] 102 98 - 107 mmol/L Normal 9 [facility] ( 10791) Comment: Performed By: #### [id number] ## ## [facility],1 [facility] [place] [address] CO2 [Moles/Vol] 25.7 21.0 - 31.0 mmol/L Normal 11-22-2018 [facility] ( 73852) Comment: Performed By: #### [id number] ## ## [facility],981 [facility] [place] [address] Creatinine [Mass/Vol] 0.9 0.6 - 1.2 mg/dl Normal 11-22-19 19 [facility] ( 39540) Comment: Performed By: #### [id number] ## ## [facility],[address] [place] [address] 77664 GFR/1.73 sq M predicted among Normal 11-22-2018 [facility] non-blacks MDRD (S/P/Bld) [Vol Hospital (74229) rate/Area] Comment: Result Comment: COMPREHENSIV E METABOLIC PANEL Performed By: #### [id number] ## ## [facility],[address] [place] [address] 78379 GFR/1.73 sq M >60 60 - 999 mL/min/{1.73_m2} Normal 9 [facility] predicted among [facility] non-blacks MDRD (000 00) (S/P/Bld) [Vol rate/Area] [...] OF AGE AND OLDER. Performed By: #### [id number] ## ## [facility],[address] [place] [address] 05581 Globulin (S) [Mass/Vol] 2.8 1.5 - 3.8 G/DL Normal 2018 [facility] ( 08506) Comment: Performed By: #### [id number] ## ## [facility],[address] [place] [address] 65756 Glucose [Mass/Vol] 125 74 - 106 mg/dl High 11-22-2018 [facility] (68806) Comment: Performed By: #### [id number] ## ## [facility],[address] [place] [address] 54904 Potassium [Moles/Vol] 4.1 3.5 - 5.1 mmol/L Normal 11-22-19 19 [facility] ( 37729) Comment: Performed By: #### [id number] ## ## [facility],[address] [place] [address] 93780 Protein [Mass/Vol] 6.8 6.4 - 8.3 g/dl Normal 11-22-2018 [facility] ( 62028) Comment: Performed By: #### [id number] ## ## [facility],[address] [place] [address] 16574 Sodium [Moles/Vol] 136 136 - 145 mmol/l Normal 11-22-2018 [facility] ( 87953) Comment: Performed By: #### [id number] ## ## [facility],[address] [place] [address] 25059 Urea nitrogen [Mass/Vol] 11 6 - 20 mg/dl Normal 11-22 [facility] ( 65784) Comment: Performed By: #### [id number] ## ## [facility],[address] [place] [address] 02505 amylase on Amylase [Catalytic 16 29 - 103 U/L Low 11-22-2018 [facility] activity/Vol] Hospit al (91696) Comment: Performed By: #### [id number] ## ## [facility],[address] [place] [address] 81226 gc/chlam amplification swab [ccl] on 2018-11-13 GC/CHLAM AMPLIFICATION SWAB [CCL] Normal 11-13-2018 [facility] ( 84559) Comment: Result Comment: _GC/CHLAMYDI A AMPLIFICATION [CCL]_ GC/CHLAM AMPLIFICATION SWAB [CCL] Reported: 11/12/2018 13:52 S tatus=F TEST RESULT FLAG RANGE UNITS GC/Chlam Amp Source CERVICAL 11/12/18.[email or web address].COMPLETE.ATLR GC Amplification *See Below* 11/12/18.[email or web address].COMPLETE.ATLR Negative for Neisseria gonor rhoeae by amplification. Chlamydia Amplif *See Below* 11/12/18.[email or web address].COMPLETE.ATLR Negative for Chlamydia trach omatis by amplification. [facility] [address] [place] [address] Lori Estrada M.D. [id number] Performed By: #### [id number] ## ## [facility],[address] [place] [address] 53319 lipid profile on 28-10-10 Cholesterol [Mass/Vol] 230 0 - 200 mg/dl High 019 [facility] ( 74202) Comment: Performed By: #### [id number] ## ## [facility],[address] [place] [address] 28735 Cholesterol in HDL 38 40 - 60 mg/dl Low 10-20-2018 [facility] [Mass/Vol] [facility] (68903) Comment: Performed By: #### [id number] ## ## [facility],[address] [place] [address] 91871 Cholesterol in LDL 131 0 - 129 mg/dl High 10-20-2018 [facility] [Mass/Vol] [facility] (08096) Comment: Performed By: #### [id number] ## ## [facility],[address] [place] [address] 92227 Cholesterol.total/Cholesterol in HDL 6.1 0.0 - 5.0 Hig h 10-20-2018 [facility] [Mass ratio] [facility] ( 75134) Comment: Performed By: #### [id number] ## ## [facility] [address] Lipid 1996 panel Normal 10-20-2018 [facility] (63221) Comment: Result Comment: LIPID PROFIL E Performed By: #### [id number] ## ## [facility] [address] Triglyceride [Mass/Vol] 304 0 - 150 mg/dl High 2018 [facility] ( 17652) Comment: Performed By: #### [id number] ## ## [facility],981 [facility] [address] cmp with egfr on 28-10-10 Age - Reported 42 years Normal 10-20-2018 [facility] (25159) Comment: Performed By: #### [id number] ## ## [facility] [address] Albumin [Mass/Vol] 4.4 3.4 - 4.8 g/dL Normal 10-20-2018 [facility] ( 78388) Comment: Performed By: #### [id number] ## ## [facility] [place] [address] Albumin/Globulin [Mass 1.4 0.9 - 1.6 {ratio} Normal 019 [facility] ratio] [facility] (64689) Comment: Performed By: #### [id number] ## ## [facility] [facility] [address] ALK PHOS 62 38 - 126 U/L Normal 10-20-2018 [facility] (60724) Comment: Performed By: #### [id number] ## ## [facility] [address] ALT/SGPT 20 8 - 35 U/L Normal 10-20-2018 [facility] (76014) Comment: Performed By: #### [id number] ## ## [facility],981 [facility] [address] Anion gap [Moles/Vol] 11 10 - 20 mmol/L Normal 10-20-19 19 [facility] ( 71153) Comment: Performed By: #### [id number] ## ## [facility],[address] [place] [address] 37726 AST/SGOT 16 13 - 39 U/L Normal 10-20-2018 [facility] (24490) Comment: Performed By: #### [id number] ## ## [facility],[address] [place] [address] 46838 B/C RATIO 9 0 - 30 ratio Normal 10-20-2018 [facility] (39599) Comment: Performed By: #### [id number] ## ## [facility],1 [facility] [address] Bilirubin [Mass/Vol] 0.5 0.0 - 1.5 mg/dl Normal 9 [facility] ( 61988) Comment: Performed By: #### [id number] ## ## [facility],[address] [place] [address] 21143 Calcium [Mass/Vol] 10.0 8.6 - 10.2 mg/dl Normal 10-20-2018 [facility] ( 25569) Comment: Performed By: #### [id number] ## ## [facility],[address] [place] [address] 76946 Chloride [Moles/Vol] 103 98 - 107 mmol/L Normal 9 [facility] ( 22671) Comment: Performed By: #### [id number] ## ## [facility],[address] [place] [address] 07256 CO2 [Moles/Vol] 25.8 21.0 - 31.0 mmol/L Normal 10-20-2018 [facility] ( 75045) Comment: Performed By: #### [id number] ## ## [facility],[address] [place] [address] 03584 Creatinine [Mass/Vol] 0.9 0.6 - 1.2 mg/dl Normal 10-20-19 19 [facility] ( 26573) Comment: Performed By: #### [id number] ## ## [facility],[address] [place] [address] 59341 GFR/1.73 sq M predicted among Normal 10-20-2018 [facility] non-blacks MDRD (S/P/Bld) [[facility] (68269) rate/Area] Comment: Result Comment: COMPREHENSIV E METABOLIC PANEL Performed By: #### [id number] ## ## [facility],[address] [place] [address] 82765 GFR/1.73 sq M >60 60 - 999 mL/min/{1.73_m2} Normal 9 [facility] predicted among [facility] non-blacks MDRD (000 00) (S/P/Bld) [Vol rate/Area] Comment: Performed By: #### [id number] ## ## [facility],[address] [place] [address] 02618 Result Comment: ACCORDING TO THE NATIONAL KIDNEY [...] 3.1 1.5 - 3.8 G/DL Normal 2018 [facility] ( 14488) Comment: Performed By: #### [id number] ## ## [facility],[address] [place] [address] 96310 Glucose [Mass/Vol] 107 74 - 106 mg/dl High 10-20-2018 [facility] (19420) Comment: Performed By: #### [id number] ## ## [facility],[address] [place] [address] 99663 Potassium [Moles/Vol] 4.2 3.5 - 5.1 mmol/L Normal 10-20-19 19 [facility] ( 22873) Comment: Performed By: #### [id number] ## ## [facility],[address] [place] [address] 49861 Protein [Mass/Vol] 7.5 6.4 - 8.3 g/dl Normal 10-20-2018 [facility] ( 40841) Comment: Performed By: #### [id number] ## ## [facility],[address] [place] [address] 66359 Sodium [Moles/Vol] 136 136 - 145 mmol/l Normal 10-20-2018 [facility] ( 50839) Comment: Performed By: #### [id number] ## ## [facility],[address] [place] [address] 81417 Urea nitrogen [Mass/Vol] 8 6 - 20 mg/dl Normal 10-20 [facility] ( 77953) Comment: Performed By: #### [id number] ## ## [facility],[address] [place] [address] 69206 cbc on 2018-10-20 Basophils (Bld) 0.10 0.00 - 0.10 x10EE3/UL Normal 10-20-2018 Олег [facility] [#/Vol] [facility] ospital (43104) Comment: Performed By: #### [id number] ## ## [facility],[address] [place] [address] 32288 Basophils/100 WBC (Bld) 0.6 0.0 - 2.0 % Normal 2018 [facility] ( 12348) Comment: Performed By: #### [id number] ## ## [facility],[address] [place] [address] 77196 CBC Normal 10-20-2018 [facility] (94417) Comment: Result Comment: CBC-COMPLETE BLOOD COUNT Performed By: #### [id number] ## ## [facility],[address] [place] [address] 25080 Eosinophils (Bld) 0.20 0.00 - 0.50 x10EE3/UL Normal 10-20-2018 [facility] [#/Vol] [facility] ospital (90817) Comment: Performed By: #### [id number] ## ## [facility],[address] [place] [address] 92142 Eosinophils/100 WBC (Bld) 1.6 0.0 - 7.0 % Normal 10-10 [facility] ( 67804) Comment: Performed By: #### [id number] ## ## [facility],[address] [place] [address] 96719 Erythrocyte distribution 15.0 12.0 - 15.6 % Normal [facility] (RBC) [Ratio] [facility] (20100) Comment: Performed By: #### [id number] ## ## [facility],[address] [place] [address] 42664 Hematocrit (Bld) [Volume 48.5 34.0 - 46.0 % High [facility] fraction] [facility] ( 22370) Comment: Performed By: #### [id number] ## ## [facility],[address] [place] [address] 75172 Hemoglobin (Bld) 16.2 12.0 - 16.0 g/dl High 10-20-2018 [facility] [Mass/Vol] [facility] (64534) Comment: Performed By: #### [id number] ## ## [facility],[address] [place] [address] 45956 Lymphocytes (Bld) 3.10 0.80 - 2.80 x10EE3/UL High 10-20-2018 [facility] [#/Vol] [facility] ospital (49602) Comment: Performed By: #### [id number] ## ## [facility],[address] [place] [address] 48886 Lymphocytes/100 WBC (Bld) 28.1 20.0 - 45.0 % Normal [facility] ( 18906) Comment: Performed By: #### [id number] ## ## [facility],[address] [place] [address] 52563 MANUAL DIFF N/A Normal 10-20-2018 [facility] (68453) Comment: Performed By: #### [id number] ## ## [facility],[address] [place] [address] 84824 MCH (RBC) [Entitic mass] 31 27 - 33 pg Normal 10-20 [facility] ( 55840) Comment: Performed By: #### [id number] ## ## [facility],[address] [place] [address] 97415 MCHC (RBC) [Mass/Vol] 33 32 - 36 X10 3 Normal 10-20-19 19 [facility] ( 99426) Comment: Performed By: #### [id number] ## ## [facility],[address] [place] [address] 95166 MCV (RBC) [Entitic vol] 91 80 - 99 fl Normal 2018 [facility] ( 33055) Comment: Performed By: #### [id number] ## ## [facility],[address] [place] [address] 02712 Monocytes (Bld) 0.80 0.20 - 1.00 x10EE3/UL Normal 10-20-2018 Олег [place] [#/Vol] [facility] (24671) Comment: Performed By: #### [id number] ## ## [facility],[address] [place] [address] 62495 MONOS % 7.1 0.0 - 10.0 % Normal 10-20-2018 [facility] (06553) Comment: Performed By: #### [id number] ## ## [facility],[address] [place] [address] 69991 Morphology Darian (Bld) [Interp] N/A Normal 10-20-2018 [facility] ( 14341) Comment: Result Comment: {CD] Performed By: #### [id number] ## ## [facility],[address] [place] [address] 28666 Neutrophils (Bld) 6.90 1.50 - 7.10 x10EE3/UL Normal 10-20-2018 [facility] [#/Vol] [facility] (02505) Comment: Performed By: #### [id number] ## ## [facility],[address] [place] [address] 69397 Neutrophils/100 WBC (Bld) 62.6 46.0 - 76.0 % Normal [facility] ( 43569) Comment: Performed By: #### [id number] ## ## [facility],[address] [place] [address] 71723 Platelet mean volume 10.6 6.6 - 10.5 fl High 10-20-19 19 [facility] (d) [Entitic vol] [facility] (79199) Comment: Result Comment: AUTOMATED DI FFERENTIAL Performed By: #### [id number] ## ## [facility],[address] [place] [address] 88778 Platelets (Bld) 258 150 - 450 x10EE3/UL Normal 10-20-2018 [facility] [#/Vol] [facility] (68737) Comment: Performed By: #### [id number] ## ## [facility],[address] [place] [address] 82358 RBC (Bld) [#/Vol] 5.31 4.10 - 5.30 x 10EE6/UL High 9 [facility] ( 32524) Comment: Performed By: #### [id number] ## ## [facility],[address] [place] [address] 80124 WBC (Bld) [#/Vol] 11.1 4.5 - 10.8 x 10EE3/UL High 10-20-2018 [facility] ( 75522) Comment: Performed By: #### [id number] ## ## [facility],[address] [place], [place] [id number] Encounters Date Type Reason Provider Location 07-04-2015 Ambulatory SOHAIL (CHIEF OF STAFF DOCTOR[place] [facility] [place]-05-2019 - [facility] Saul [facility] (0000 0) JANNIE EDWARDS [facility] JANNIE CORDOVALER UNKNOWN PROVIDER UNKNOWN PROVIDER 08-04-2019 - Emergency EZEQUIEL Palencia [facility] 08-05-2019 department patient EZEQUIEL DO JOHNSON Memoria l visit JANNIE [facility] (85008) EZEQUIEL DO ALEX VALDERRAMA CNP JERRY UNKNOWN PROVIDER UNKNOWN PROVIDER 06-25-2019 - Emergency Paresthesia of skin REID Pena erekasey 06-25-2019 department patient LEX ROBERTS Saul rial visit [facility] (72183 ) JANNIE Pickard [facility] JANNIE CORDOVALER UNKNOWN PROVIDER UNKNOWN PROVIDER 05-09-2019 - Emergency QAMAR Garcia moshe 05-09-2019 department patient CHRISTIANNE [facility]UST [facility]88135[facility] UNKNOWN PROVIDER UNKNOWN PROVIDER 10-13-2017 Evaluation and LEFT URETERAL STONE Seng Perla lity:[facility] inpatient 08-03-2019 - Patient encounter MIRELLA LORENZ MIRELLA Florez omerene 08-03-2019 procedure [facility] JANNIE RAOMN [facility] (53464) UNKNOWN PROVIDER UNKNOWN PROVIDER 07-29-2019 - Patient encounter Follicular cyst of MIRELLA LORENZ MIRELLA [place] 07-29-2019 procedure the skin and [facility] subcutaneous tissue, JANNIE CHIEF OF STAFF DOCTOR JERRY H ospital (35250) unspecified UNKNOWN PROVIDER UNKNOWN PROVIDER 11-22-2018 - [facility] 11-22-2018 procedure [facility] ([phone]) JANNIE EDWARDS UNKNOWN PROVIDER UNKNOWN PROVIDER 11-10-2018 - Patient encounter Encounter for JANNIE EDWARDS [place] 11-10-2018 procedure screening for JANNIE CHIEF OF STAFF DOCTOR [facility] malignant neoplasm JANNIE CHIEF OF STAFF DOCTOR JERRY Hos pital (33699) of cervix TYRON RITTER UNKNOWN PROVIDER UNKNOWN PROVIDER 10-20-2018 - Patient encounter Encounter for JANNIE EDWARDS [place] 10-20-2018 procedure general adult [facility]ANNIE CHIEF OF STAFF DOCTOR JERRY Ho spital (43164) without abnormal TYRON RITTER findings UNKNOWN PROVIDER UNKNOWN PROVIDER 10-20-2018 Encounter for Encounter for Dale Pomerene general adult general adult [facility] medical examination medical examination H ospital (59343) without abnormal without abnormal findings findings Procedures Procedure Name Date Provider Location Blood count hematocrit 04-03-2019 [facility] (91988) Comment: Performed By: #### CBCAD ### # [facility] [address] [address] Blood count hemoglobin 04-03-2019 [facility] (39573) Comment: Performed By: #### CBCAD ### # [facility] [address] [address] Payers Payer Name Policy Number Location PENDING SALE TO [facility] [employer]ICA[employer] [id number] [facility] (01452) [id number] [facility] ([id number]) [id number] [facility] ([id number]) [id number] [facility] (64233) [id number] [facility] (65522) [id number] [facility] (96046) [id number] [facility] (49287) [id number] [facility] (18228) [id number] [facility] (59924) [id number] [facility] (70580) The following information is from the original [...] BE BASED ON THE PRIMARY CLINICAL RECORDS. [facility] provides no warranty or guarantee of the accuracy or completeness of information in this document. UNRECOGNIZED CONTENT PROVIDED BELOW FOR UNRECOGNIZED SECTION INFORMATION SOURCE DATE CREATED AUTHOR AUTHOR'S ORGANIZATIO N 03/30/2018 [facility] DATE CREATED AUTHOR AUTHOR'S ORGANIZATIO N 04/04/2018 [facility] DATE CREATED AUTHOR AUTHOR'S ORGANIZATIO N 11/29/2018 [facility] DATE CREATED AUTHOR AUTHOR'S ORGANIZATIO N [facility] DATE CREATED AUTHOR AUTHOR'S ORGANIZATIO N 08/05/2019 [facility]
== END 2019-08-05 21:50 | disposition home or self-care (01) ==
PROVIDERS: Emergency Provider Emergency Medicine; Family Provider Family Medicine; PCP Family Medicine
DX: G89.18 Other acute postprocedural pain (principal); R60.9 Edema, unspecified; Z88.8 Allergy status to other drugs, medicaments and biological substances; E66.9 Obesity, unspecified
CPT/HCPCS: 99283

== ENCOUNTER 2022-01-08 10:45 | Outpatient (CLI) | payer MEDICAID, SELFPAY ==
[2022-01-08 12:31] LABS: Follicle Stimulating Hormone 8.4 mIU/mL; Luteinizing Hormone 4.4 mIU/mL; Prolactin 7.1 ng/mL
[2022-01-09 10:32] LABS: Thyroid Peroxidase AB 18 IU/mL (0-34)
== END 2022-01-08 23:59 | disposition home or self-care (01) ==
LOC: BIMLAB 10:46
PROVIDERS: PCP Family Medicine; Referring Provider Internal Medicine Endocrinology, Diabetes & Metabolism; Visit Provider Internal Medicine Endocrinology, Diabetes & Metabolism
DX: E23.6 Other disorders of pituitary gland (principal)
CPT/HCPCS: 36415; 82533; 83001; 83002; 84146; 86376